=== PATIENT | female | born 1935 | race Caucasian/White ===

== ENCOUNTER 2017-01-27 12:56 | Emergency (ER) | payer MEDICARE, MEDICAID ==
[2017-01-27] MEDS ORDERED: MORPHINE SULFATE 10 MG/ML INJ IV ONE (12:59)
--- NOTE | 2017-01-27 12:59 | ER Document Report ---
ED General - General Stated Complaint: PAIN ON LEFT SIDE ,JOINTS Time Seen by Provider: 01/27/17 12:58 Mode of Arrival: Medic Information source: Patient Notes: 81-year-old female recent MS with stay in the hospital for 1 month presents with complaints of left-sided pain. Patient notes all her joints ache but her left-sided joints hurt more than her right side does. Patient notes weakness secondary to the pain denies any actual weakness. She denies any headache - HPI Onset: This morning Onset/Duration: Sudden Quality of pain: Achy Severity: Mild Pain Level: 1 Associated symptoms: Body/muscle aches, Weakness - Generalized weakness Exacerbated by: Movement Relieved by: Denies Similar symptoms previously: Yes Recently seen / treated by doctor: Yes - Related Data Allergies/Adverse Reactions: meperidine [From Demerol] Allergy (Verified 01/27/17 13:33) morphine Allergy (Verified 01/27/17 13:33) Past Medical History - Social History Smoking Status: Never Smoker Cigarette use (# per day): No Chew tobacco use (# tins/day): No Smoking Education Provided: No Family History: Reviewed & Not Pertinent Review of Systems - Review of Systems Notes: REVIEW OF SYSTEMS: CONSTITUTIONAL : Denies fever, chills, or sweats. Denies recent illness. EENT: Denies eye, ear, throat, or mouth pain or symptoms. Denies nasal or sinus congestion or discharge. Denies throat, tongue, or mouth swelling or difficulty swallowing. CARDIOVASCULAR: Denies chest pain. Denies palpitations or racing or irregular heart beat. Denies ankle edema. RESPIRATORY: Denies cough, cold, or chest congestion. Denies shortness of breath, difficulty breathing, or wheezing. GASTROINTESTINAL: Denies abdominal pain or distention. Denies nausea, vomiting , or diarrhea. Denies blood in vomitus, stools, or per rectum. Denies black, tarry stools. Denies constipation. GENITOURINARY: Denies difficulty urinating, painful urination, burning, frequency, blood in urine, or discharge. FEMALE GENITOURINARY: Denies vaginal bleeding, heavy or abnormal periods, irregular periods. Denies vaginal discharge or odor. MUSCULOSKELETAL: left sided joint pain SKIN: Denies rash, lesions or sores. HEMATOLOGIC : Denies easy bruising or bleeding. LYMPHATIC: Denies swollen, enlarged glands. NEUROLOGICAL: Denies confusion or altered mental status. Denies passing out or loss of consciousness. Denies dizziness or lightheadedness. Denies headache. Denies weakness or paralysis or loss of use of either side. Denies problems with gait or speech. Denies sensory loss, numbness, or tingling. Denies seizures. PSYCHIATRIC: Denies anxiety or stress. Denies depression, suicidal ideation, or homicidal ideation. ALL OTHER SYSTEMS REVIEWED AND NEGATIVE. PHYSICAL EXAMINATION: GENERAL: Well-appearing, well-nourished and in no acute distress. HEAD: Atraumatic, normocephalic. EYES: Pupils equal round and reactive to light, extraocular movements intact, conjunctiva are normal. ENT: Nares patent, oropharynx clear without exudates. Moist mucous membranes. NECK: Normal range of motion, supple without lymphadenopathy LUNGS: Breath sounds clear to auscultation bilaterally and equal. No wheezes rales or rhonchi. HEART: Regular rate and rhythm without murmurs ABDOMEN: Soft, nontender, nondistended abdomen. No guarding, no rebound. No masses appreciated. Female : deferred Musculoskeletal: Normal range of motion, no pitting or edema. No cyanosis. easily reproducible joint pain NEUROLOGICAL: Cranial nerves grossly intact. Normal speech, normal gait. Normal sensory, motor exams PSYCH: Normal mood, normal affect. SKIN: Warm, Dry, normal turgor, no rashes or lesions noted. Dictation was performed using [employer] voice recognition software Physical Exam - Vital signs Vitals: Resp BP Pulse Ox 16 134/52 H 98 01/27/17 13:12 01/27/17 13:12 01/27/17 13:12 Course - Re-evaluation Re-evalutation: 01/27/17 13:21 Patient has obvious tenderness on palpation, lab work is pending however I believe this is all joint related 01/27/17 15:01 Patient was given [place] states her symptoms have since resolved. Labwork does note mild renal insufficiency patient was given IV fluids and is otherwise stable for discharge patient wishes to go home at this time After performing a Medical Screening Examination, I estimate there is LOW risk for RUPTURED ESOPHAGUS, PNEUMOTHORAX, PULMONARY EMBOLISM, ACUTE CORONARY SYNDROME, OR THORACIC AORTIC DISSECTION, thus I consider the discharge disposition reasonable. I have reevaluated this patient multiple times and no significant life threatening changes are noted. The patient and I have discussed the diagnosis and risks, and we agree with discharging home with close follow-up. We also discussed returning to the Emergency Department immediately if new or worsening symptoms occur. We have discussed the symptoms which are most concerning (e.g., bloody sputum, worsening pain or shortness of breath) that necessitate immediate return. - Vital Signs Vital signs: Temp Pulse Resp BP Pulse Ox 97.8 F 16 134/52 H 97 01/27/17 13:13 01/27/17 13:13 01/27/17 13:12 01/27/17 13:13 - Laboratory Result Diagrams: 01/27/17 13:29 01/27/17 13:29 Laboratory results interpreted by me: 01/27/17 01/27/17 01/27/17 13:29 13:29 14:00 RBC 3.12 L Hgb 8.7 L Hct 26.1 L RDW 15.7 H Creatinine 1.60 H Est GFR ( Amer) 38 L Est GFR (Non-Af Amer) 31 L Glucose 183 H Alkaline Phosphatase 133 H Creatine Kinase < 20 L Total Protein 6.2 L Albumin 2.8 L Ur Leukocyte Esterase SMALL H - Diagnostic Test Radiology reviewed: Image reviewed, Reports reviewed Discharge - Discharge Clinical Impression: Renal insufficiency, Chronic anemia Joint pain Qualifiers: Joint pain location: unspecified Qualified Code(s): M25.50 - Pain in unspecified joint Condition: Stable Disposition: HOME, SELF-CARE Instructions: Anemia ([facility]) Referrals: COLIN GELLER MD [Primary Care Provider] - Follow up tomorrow
[2017-01-27] MEDS ORDERED: HYDROCODONE/ACETAMINOPHEN 5-325 MG TABLET PO ONE (13:34)
[2017-01-27 13:44] LABS: ABSOLUTE BASOPHILS # (AUTO) 0.1 10^3/uL (0.0-0.2); ABSOLUTE EOSINOPHILS # (AUTO) 0.1 10^3/uL (0.0-0.6); ABSOLUTE LYMPHOCYTES (AUTO) 1.9 10^3/uL (0.5-4.7); ABSOLUTE MONOCYTES (AUTO) 0.7 10^3/uL (0.1-1.4); ABSOLUTE NEUT (AUTO) 3.4 10^3/uL (1.7-8.2); BASOPHILS % (AUTO) 0.9 % (0-2); EOSINOPHILS % (AUTO) 2.2 % (0-6); HEMATOCRIT 26.1 % (36.0-47.0); HEMOGLOBIN 8.7 g/dL (12.0-15.5); LYMPHOCYTES % (AUTO) 30.5 % (13-45); MEAN CORPUSCULAR HEMOGLOBIN 27.9 pg (27.0-33.4); MEAN CORPUSCULAR HGB CONC 33.3 g/dL (32.0-36.0); MEAN CORPUSCULAR VOLUME 84 fl (80-97); MONOCYTES % (AUTO) 11.7 % (3-13); RED BLOOD COUNT 3.12 10^6/uL (3.72-5.28); RED CELL DISTRIBUTION WIDTH 15.7 % (11.5-14.0); SEGMENTED NEUTROPHILS % (AUTO) 54.7 % (42-78); WHITE BLOOD COUNT 6.3 10^3/uL (4.0-10.5)
[2017-01-27 14:04] LABS: ALANINE AMINOTRANSFERASE 18 U/L (9-52); ALBUMIN 2.8 g/dL (3.5-5.0); ALKALINE PHOSPHATASE 133 U/L (38-126); ANION GAP 10 (5-19); ASPARTATE AMINO TRANSFERASE 28 U/L (14-36); BILIRUBIN,DIRECT 0.4 mg/dL (0.0-0.4); BILIRUBIN,TOTAL 0.6 mg/dL (0.2-1.3); BLOOD UREA NITROGEN 20 mg/dL (7-20); CALCIUM 8.6 mg/dL (8.4-10.2); CARBON DIOXIDE 23 mmol/L (22-30); CHLORIDE 105 mmol/L (98-107); GLUCOSE 183 mg/dL (75-110); POTASSIUM 4.5 mmol/L (3.6-5.0); SODIUM 137.7 mmol/L (137-145); TOTAL PROTEIN 6.2 g/dL (6.3-8.2)
[2017-01-27 14:07] LABS: CREATINE KINASE < 20 U/L (30-135)
[2017-01-27 14:22] LABS: CREATINE KINASE MB < 0.22 ng/mL (<4.55); TROPONIN I < 0.012 ng/mL
[2017-01-27 14:25] LABS: APPEARANCE,URINE SLIGHTLY-CLOUDY; BILIRUBIN,URINE NEGATIVE (NEGATIVE); GLUCOSE, URINE NEGATIVE (NEGATIVE); KETONES,URINE NEGATIVE (NEGATIVE); LEUKOCYTE ESTERASE,URINE SMALL (NEGATIVE); NITRITE,URINE NEGATIVE (NEGATIVE); PROTEIN,URINE NEGATIVE (NEGATIVE); URINE SPECIFIC GRAVITY 1.013; UROBILINOGEN,URINE NEGATIVE mg/dL (<2.0)
[2017-01-27] MEDS ORDERED: NORMAL SALINE 1000 ML 1,000 ML IV ONE (14:37)
[2017-01-27 16:47] VITALS: BP 142/59
== END 2017-01-27 16:47 | disposition home or self-care (01) ==
LOC: ER 12:56
DX: N28.9 Disorder of kidney and ureter, unspecified (principal); D64.9 Anemia, unspecified; M25.50 Pain in unspecified joint
CPT/HCPCS: 99285; 96360; 36415; 82553; 82550; 85025; 80053; 81001; 84484; J7030; A9270

== ENCOUNTER 2017-01-31 09:05 | Emergency (ER) | payer MEDICARE, MEDICAID ==
[2017-01-25] MEDS: SOTALOL HCL 80 MG TABLET PO SCH
[2017-01-31] MEDS ORDERED: NORMAL SALINE 1000 ML 1,000 ML IV ONE (09:30)
[2017-01-31] MEDS ORDERED: ONDANSETRON HCL INJ/PF 4 MG/2 ML SDV IV ONE (09:30)
--- NOTE | 2017-01-31 09:30 | ER Document Report ---
ED Medical Screen (RME) - General Chief Complaint: Weakness Stated Complaint: WEAKNESS Time Seen by Provider: 01/31/17 09:19 Mode of Arrival: Wheelchair Information source: Patient, Relative Notes: 81-year-old female who [place] [facility] [place] supposed to receive home health care but has not had any admits to generalized joint pain. Patient was seen by myself a few days prior with similar complaints mild renal insufficiency chronic anemia was noted at that time. Patient notes she has been progressively getting weaker and has been nauseous and not eating at home I have greeted and performed a rapid initial assessment of this patient. A comprehensive ED assessment and evaluation of the patient, analysis of test results and completion of the medical decision making process will be conducted by additional ED providers. PHYSICAL EXAMINATION: GENERAL: Well-appearing, well-nourished and in no acute distress. vomiting HEAD: Atraumatic, normocephalic. EYES: Pupils equal round extraocular movements intact, conjunctiva are normal. ENT: Nares patent NECK: Normal range of motion LUNGS: No respiratory distress Musculoskeletal: Normal range of motion NEUROLOGICAL: Normal speech, normal gait. PSYCH: Normal mood, normal affect. SKIN: Warm, Dry, normal turgor, no rashes or lesions noted. TRAVEL OUTSIDE OF THE [place] IN LAST 30 DAYS: No - Related Data Allergies/Adverse Reactions: meperidine [From Demerol] Allergy (Verified 01/31/17 09:17) morphine Allergy (Verified 01/31/17 09:17) Past Medical History - Past Medical History Cardiac Medical History: Reports: Hx Atrial Fibrillation, Hx Congestive Heart Failure Endocrine Medical History: Reports: Hx Diabetes Mellitus Type 2 Renal/ Medical History: Denies: Hx Peritoneal Dialysis Musculoskeltal Medical History: Reports Hx Arthritis Past Surgical History: Reports: Hx Bowel Surgery, Hx Cholecystectomy, Hx Hysterectomy, Hx Orthopedic Surgery - knees bilat Physical Exam - Vital signs Vitals: Temp Pulse BP Pulse Ox 98.2 F 87 143/67 H 93 01/31/17 09:18 01/31/17 09:18 01/31/17 09:18 01/31/17 09:18 Course - Vital Signs Vital signs: Temp Pulse Resp BP Pulse Ox 98.2 F 87 143/67 H 93 01/31/17 09:18 01/31/17 09:18 01/31/17 09:18 01/31/17 09:18
[2017-01-31 10:04] LABS: ABSOLUTE BASOPHILS # (AUTO) 0.1 10^3/uL (0.0-0.2); ABSOLUTE EOSINOPHILS # (AUTO) 0.3 10^3/uL (0.0-0.6); ABSOLUTE LYMPHOCYTES (AUTO) 1.8 10^3/uL (0.5-4.7); ABSOLUTE MONOCYTES (AUTO) 0.7 10^3/uL (0.1-1.4); ABSOLUTE NEUT (AUTO) 4.3 10^3/uL (1.7-8.2); BASOPHILS % (AUTO) 0.8 % (0-2); EOSINOPHILS % (AUTO) 3.7 % (0-6); HEMATOCRIT 28.8 % (36.0-47.0); HEMOGLOBIN 9.3 g/dL (12.0-15.5); HGB HCT DIFFERENCE -0.9; LYMPHOCYTES % (AUTO) 25.1 % (13-45); MEAN CORPUSCULAR HEMOGLOBIN 27.2 pg (27.0-33.4); MEAN CORPUSCULAR HGB CONC 32.4 g/dL (32.0-36.0); MEAN CORPUSCULAR VOLUME 84 fl (80-97); MONOCYTES % (AUTO) 9.8 % (3-13); RED BLOOD COUNT 3.44 10^6/uL (3.72-5.28); RED CELL DISTRIBUTION WIDTH 16.2 % (11.5-14.0); SEGMENTED NEUTROPHILS % (AUTO) 60.6 % (42-78); WHITE BLOOD COUNT 7.2 10^3/uL (4.0-10.5)
[2017-01-31 10:25] LABS: ALANINE AMINOTRANSFERASE 20 U/L (9-52); ALBUMIN 3.1 g/dL (3.5-5.0); ALKALINE PHOSPHATASE 140 U/L (38-126); ANION GAP 12 (5-19); ASPARTATE AMINO TRANSFERASE 12 U/L (14-36); BILIRUBIN,DIRECT 0.4 mg/dL (0.0-0.4); BILIRUBIN,TOTAL 0.8 mg/dL (0.2-1.3); BLOOD UREA NITROGEN 10 mg/dL (7-20); CALCIUM 9.4 mg/dL (8.4-10.2); CARBON DIOXIDE 22 mmol/L (22-30); CHLORIDE 103 mmol/L (98-107); CREATININE RESULT 0.84 mg/dL (0.52-1.25); GLUCOSE 200 mg/dL (75-110); POTASSIUM 4.3 mmol/L (3.6-5.0); SODIUM 137.3 mmol/L (137-145); TOTAL PROTEIN 6.6 g/dL (6.3-8.2)
[2017-01-31] MEDS ORDERED: METOCLOPRAMIDE HCL INJ/PF 10 MG/2 ML SDV IV ONE (10:39)
[2017-01-31] MEDS ORDERED: NORMAL SALINE 1000 ML 1,000 ML IV PRN (10:39)
[2017-01-31] MEDS ORDERED: KETOROLAC TROMETHAMINE INJ/PF 30 MG/1 ML SDV IV ONE (10:39)
--- NOTE | 2017-01-31 10:43 | ER Document Report ---
ED Dizziness/Weakness - General Chief Complaint: Weakness Stated Complaint: WEAKNESS Time Seen by Provider: 01/31/17 09:19 Mode of Arrival: Wheelchair TRAVEL OUTSIDE OF THE [place] IN LAST 30 DAYS: No - HPI Patient complains to provider of: Weakness Onset: Last week Onset/Duration: Persistent, Worse Quality of pain: Achy Severity: Moderate Pain Level: 4 Associated symptoms: Nausea, Vomiting, Weak all over Baseline gait: Walks w/o assistance Notes: Patient is a 81-year-old female with a history of type 1 diabetes, atrial fibrillation and hypothyroidism, who recently suffered a mild [place] resulting in a near 4 weeks day at formerly [facility] in [place], she was discharged to her daughter's care approximately 12 days ago, since then daughter has noted that patient strength is gotten much worse, she is unable to perform her activities of daily living, unable to bear her own weight, requiring extensive assistance at home, she also complains of joint pain all over, was recently seen in this emergency room and prescribed hydrocodone which she states is not helping her pain at all, this morning she developed nausea and vomiting as well, has had decreased p.o. intake over the past few days, basically daughter is requesting that patient be admitted to the hospital and further transferred to a short- term or long-term care facility as she cannot be properly cared for at home at the present time - Related Data Allergies/Adverse Reactions: meperidine [From Demerol] Allergy (Verified 01/31/17 09:17) morphine Allergy (Verified 01/31/17 09:17) Home Medications: Current Home Medications Acetaminophen [Tylenol 325 mg Tablet] 325 mg PO BIDP PRN 01/31/17 [History] Apixaban [Eliquis 5 mg Tablet] 5 mg PO Q12 01/31/17 [History] Aspirin [Aspirin 81 mg Chewable Tablet] 162 mg PO DAILY 01/31/17 [History] Atorvastatin Calcium [Lipitor 40 mg Tablet] 40 mg PO QHS 01/31/17 [History] Cadexomer Iodine [Iodosorb Gel] 1 applic TP Q2DAYS 01/31/17 [History] Cetirizine HCl [Zyrtec 10 mg Tablet] 10 mg PO DAILY 01/31/17 [History] Diclofenac Sodium [Voltaren] 1 applic TP Q2DAYS 01/31/17 [History] Fluticasone Propionate [Flonase Nasal [place] 50 Mcg/[place] 16 gm] 1 spray NAREB DAILY 01/31/17 [History] Insulin Glargine,Hum.rec.anlog [Lantus Insulin Inj 300 Unit/3 ml Pen] 6 unit SUBCUT QAM 01/31/17 [History] Insulin Glargine,Hum.rec.anlog [Lantus Insulin Inj 300 Unit/3 ml Pen] 10 unit SUBCUT QHS 01/31/17 [History] Insulin Lispro [Humalog Insulin 100 Unit/1 ml 3 ml Vial] 0 unit SUBCUT .SLD SCALE 01/31/17 [History] Levothyroxine Sodium [Synthroid] 150 mcg PO DAILY 01/31/17 [History] Losartan Potassium [Cozaar 50 mg Tablet] 50 mg PO Q12 01/31/17 [History] Nitroglycerin [Nitrostat] 0.4 mg SL Q5MP PRN 01/31/17 [History] Pantoprazole Sodium [Protonix] 40 mg PO DAILY 01/31/17 [History] Potassium Chloride [Klor-Con 10 Meq Tablet.sa] 20 meq PO DAILY 01/31/17 [History ] Sennosides [Senna] 1 tab PO DAILYP PRN 01/31/17 [History] Sotalol HCl [Sotalol] 80 mg PO Q12 01/31/17 [History] Past Medical History - General Information source: Patient, Relative - Social History Smoking Status: Never Smoker Chew tobacco use (# tins/day): No Frequency of alcohol use: None Drug Abuse: None Family History: Reviewed & Not Pertinent Patient has suicidal ideation: No Patient has homicidal ideation: No - Past Medical History Cardiac Medical History: Reports: Hx Atrial Fibrillation, Hx Congestive Heart Failure Endocrine Medical History: Reports: Hx Diabetes Mellitus Type 2 Renal/ Medical History: Denies: Hx Peritoneal Dialysis Musculoskeltal Medical History: Reports Hx Arthritis Past Surgical History: Reports: Hx Bowel Surgery, Hx Cholecystectomy, Hx Hysterectomy, Hx Orthopedic Surgery - knees bilat Review of Systems - Review of Systems Constitutional: See HPI EENT: No symptoms reported Cardiovascular: No symptoms reported Respiratory: No symptoms reported Gastrointestinal: See HPI Genitourinary: No symptoms reported Female Genitourinary: No symptoms reported Musculoskeletal: See HPI Skin: No symptoms reported Hematologic/Lymphatic: No symptoms reported Neurological/Psychological: No symptoms reported -: Yes All other systems reviewed and negative Physical Exam - Vital signs Vitals: Temp Pulse BP Pulse Ox 98.2 F 87 143/67 H 93 01/31/17 09:18 01/31/17 09:18 01/31/17 09:18 01/31/17 09:18 Interpretation: Normal - General General appearance: Appears well, Alert - HEENT Head: Normocephalic, Atraumatic Eyes: Normal Pupils: PERRL - Respiratory Respiratory status: No respiratory distress Chest status: Nontender Breath sounds: Normal Chest palpation: Normal - Cardiovascular Rhythm: Regular Heart sounds: Normal auscultation Murmur: No - Abdominal Inspection: Normal Distension: No distension Bowel sounds: Normal Tenderness: Nontender Organomegaly: No organomegaly - Back Back: Normal, Nontender - Extremities General upper extremity: Normal color, Normal temperature General lower extremity: Normal color, Normal temperature. No: Marisol's sign Shoulder: Other - Reports pain with range of motion testing and palpation of the left shoulder, distal sensation and motor is intact with good real estate salesperson strength bilaterally, 2+ radial pulses and brisk capillary refill bilaterally Knee: Other - Swelling to bilateral knees, patient reports pain with palpation and range of motion testing, distal sensation and motor is intact with 2+ DP pulses bilaterally - Neurological Neuro grossly intact: Yes Cognition: Normal Orientation: AAOx4 [place] Coma Scale Eye Opening: Spontaneous [place] Coma Scale Verbal: Oriented Nelsy Coma Scale Motor: Obeys Commands [place] Coma Scale Total: 15 Speech: Normal Motor strength normal: LUE, RUE, LLE, RLE Sensory: Normal - Psychological Associated symptoms: Normal affect, Normal mood - Skin Skin Temperature: Warm Skin Moisture: Dry Skin Color: Normal Course - Re-evaluation Re-evalutation: 01/31/17 12:[address] García's office, requested callback regarding possibly admitting patient 01/31/17 13:26 Patient was discussed with Dr. García, who reports patient does not meet inpatient hospitalization criteria, recommend she be discharged home and follow- up with social work to obtain placement otherwise as he will not admit patient to this facility at this time 01/31/17 19:41 Patient was discussed with Brijesh with [facility] who is attempting to find placement for the patient, he does not meet inpatient criteria at this time and daughter refuses to take patient home at this time because she can not care for her appropriately at home, therefore patient will remain in the emergency room as a social hold until appropriate placement can be made - Vital Signs Vital signs: Temp Pulse Resp BP Pulse Ox 98.2 F 87 14 128/38 H 92 01/31/17 09:18 01/31/17 18:00 01/31/17 18:00 01/31/17 18:00 01/31/17 18:00 - Laboratory Result Diagrams: 01/31/17 09:45 01/31/17 09:45 Laboratory results interpreted by me: 01/31/17 01/31/17 01/31/17 09:45 09:45 09:45 RBC 3.44 L Hgb 9.3 L Hct 28.8 L RDW 16.2 H Plt Count 462 H Glucose 200 H POC Glucose AST 12 L Alkaline Phosphatase 140 H Albumin 3.1 L Free T4 2.59 H Urine Glucose (UA) Urine Ketones Urine Blood 01/31/17 01/31/17 01/31/17 11:15 14:52 17:50 RBC Hgb Hct RDW Plt Count Glucose POC Glucose 256 H 185 H AST Alkaline Phosphatase Albumin Free T4 Urine Glucose (UA) 50 H Urine Ketones TRACE H Urine Blood SMALL H Discharge - Discharge Clinical Impression: Weakness Condition: Stable Disposition: REHAB FACILITY
[2017-01-31 11:36] LABS: APPEARANCE,URINE CLEAR; BILIRUBIN,URINE NEGATIVE (NEGATIVE); GLUCOSE, URINE 50 mg/dL (NEGATIVE); KETONES,URINE TRACE mg/dL (NEGATIVE); LEUKOCYTE ESTERASE,URINE NEGATIVE (NEGATIVE); NITRITE,URINE NEGATIVE (NEGATIVE); PROTEIN,URINE NEGATIVE (NEGATIVE); URINE SPECIFIC GRAVITY 1.004; UROBILINOGEN,URINE NEGATIVE mg/dL (<2.0)
[2017-01-31 11:51] LABS: FREE T3 3.03 pg/mL (2.77-5.27)
[2017-01-31 12:04] LABS: THYROID STIMULATING HORMONE 1.93 uIU/mL (0.47-4.68)
--- NOTE | 2017-01-31 14:12 | EKG REPORT ---
SEVERITY:- NORMAL ECG - SINUS RHYTHM : Confirmed by: Rigoberto Thomas MD 31-Jan-2017 14:11:52
[2017-01-31] MEDS ORDERED: INSULIN REG, HUMAN 100 UNIT/ML 3 ML VIAL (PYX) SUBCUT ONE (14:54)
[2017-01-31] MEDS ORDERED: DEXTROSE 40% GEL 15 GM TUBE X 2 PO PRN (17:48)
[2017-01-31] MEDS ORDERED: DEXTROSE 40% GEL 15 GM TUBE PO PRN (17:48)
[2017-01-31] MEDS ORDERED: DEXTROSE 50%-WATER SYRINGE 12.5 GM/25 ML DOSE IV PRN (17:48)
[2017-01-31] MEDS ORDERED: GLUCAGON,HUMAN RECOMB 1 MG INJ IM PRN (17:48)
[2017-01-31] MEDS ORDERED: DEXTROSE 50%-WATER SYRINGE 25 GM/50 ML DOSE IV PRN (17:48)
[2017-01-31] MEDS ORDERED: INSULIN LISPRO 100 UNIT/ML 3 ML VIAL SUBCUT PRN (19:51)
[2017-01-31] MEDS ORDERED: ACETAMINOPHEN 325 MG TABLET PO PRN (19:51)
[2017-01-31] MEDS ORDERED: NITROGLYCERIN 0.4 MG/TAB 25 TAB/BOTTLE SL PRN (19:51)
[2017-01-31] MEDS ORDERED: SENNOSIDES PO PRN (19:51)
[2017-01-31] MEDS ORDERED: SENNOSIDES/DOCUSATE 8.6-50 MG 1 EACH TABLET PO PRN (20:02)
[2017-02-01] MEDS: INSULIN GLARGINE,HUM.REC.ANLOG 300 UNIT/3 ML INSULN.PEN SUBCUT SCH ×3 (08:10→21:48)
[2017-02-01] MEDS: POTASSIUM CHLORIDE 10 MEQ TABLET.SA PO SCH (10:43)
[2017-02-01] MEDS: SOTALOL HCL 80 MG TABLET PO SCH ×2 (10:44→21:49)
[2017-02-01] MEDS: ASPIRIN 81 MG TABLET, CHEWABLE PO SCH (10:45)
[2017-02-01] MEDS ORDERED: ONDANSETRON 4 MG TAB.RAPDIS SL ONE (10:45)
[2017-02-01] MEDS: LOSARTAN POTASSIUM 50 MG TABLET PO SCH ×3 (10:46→21:49)
[2017-02-01] MEDS: LANSOPRAZOLE 30 MG TAB.RAP.DR PO SCH (10:46)
--- NOTE | 2017-02-01 11:10 | ER Document Report ---
Doctor's Note Notes: 02/01/17 11:09 Patient resting comfortably on stretcher, reports feeling nauseated at this time , otherwise stable overnight, patient remains in the emergency room pending placement in a short-term/long-term care facility as her daughter is no longer able to care for her at home
[2017-02-01] MEDS: INSULIN REG, HUMAN 100 UNIT/ML 3 ML VIAL (PYX) SUBCUT PRN ×3 (11:32→21:47)
[2017-02-01] MEDS: APIXABAN 5 MG TABLET PO SCH ×3 (11:33→21:50)
[2017-02-01] MEDS: CETIRIZINE 10 MG TABLET PO SCH (11:35)
[2017-02-01] MEDS: LEVOTHYROXINE SODIUM 0.15 MG TABLET PO SCH (11:35)
[2017-02-01] MEDS: FLUTICASONE NASAL SPRAY 50 MCG/SPRY 120 SPRAY/16 GM NASL SCH (11:37)
[2017-02-01] MEDS ORDERED: HYDROCODONE/ACETAMINOPHEN 5-325 MG TABLET PO ONE (19:52)
[2017-02-01] MEDS: ATORVASTATIN CALCIUM 40 MG TABLET PO SCH ×2 (21:51)
[2017-02-02] MEDS: INSULIN GLARGINE,HUM.REC.ANLOG 300 UNIT/3 ML INSULN.PEN SUBCUT SCH ×2 (08:06→22:58)
[2017-02-02] MEDS: CETIRIZINE 10 MG TABLET PO SCH (09:48)
[2017-02-02] MEDS: APIXABAN 5 MG TABLET PO SCH ×2 (09:48→23:07)
[2017-02-02] MEDS: POTASSIUM CHLORIDE 10 MEQ TABLET.SA PO SCH (09:49)
[2017-02-02] MEDS: LANSOPRAZOLE 30 MG TAB.RAP.DR PO SCH (09:50)
[2017-02-02] MEDS: ASPIRIN 81 MG TABLET, CHEWABLE PO SCH (09:50)
[2017-02-02] MEDS: LOSARTAN POTASSIUM 50 MG TABLET PO SCH ×2 (09:50→23:08)
[2017-02-02] MEDS: SOTALOL HCL 80 MG TABLET PO SCH ×2 (09:50→23:04)
[2017-02-02] MEDS: FLUTICASONE NASAL SPRAY 50 MCG/SPRY 120 SPRAY/16 GM NASL SCH (09:51)
[2017-02-02] MEDS ORDERED: (PENDING PHARMACY ID) (Diclofenac Sodium [Voltaren] 1 APPLIC) TP SCH (10:00)
[2017-02-02] MEDS ORDERED: CADEXOMER IODINE GEL 40 GM/TUBE TP SCH (10:00)
[2017-02-02] MEDS: LEVOTHYROXINE SODIUM 0.15 MG TABLET PO SCH (10:33)
[2017-02-02] MEDS: INSULIN REG, HUMAN 100 UNIT/ML 3 ML VIAL (PYX) SUBCUT PRN ×2 (11:51→16:13)
--- NOTE | 2017-02-02 16:07 | ER Document Report ---
Doctor's Note Notes: 02/02/17 16:06 Rounds: Patient was interviewed earlier today. Chart reviewed. All lab studies essentially normal. Vital signs essentially normal. Patient appears to be medically stable for transfer or discharge. The problem apparently is a placement issue that is apparently difficult to resolve. Girish Melo MD
[2017-02-02] MEDS: HYDROCODONE/ACETAMINOPHEN 5-325 MG TABLET PO PRN (23:00)
[2017-02-02] MEDS: ATORVASTATIN CALCIUM 40 MG TABLET PO SCH (23:04)
[2017-02-03] MEDS: ASPIRIN 81 MG TABLET, CHEWABLE PO SCH (08:33)
[2017-02-03] MEDS: LANSOPRAZOLE 30 MG TAB.RAP.DR PO SCH (08:34)
[2017-02-03] MEDS: LEVOTHYROXINE SODIUM 0.15 MG TABLET PO SCH (08:34)
[2017-02-03] MEDS: CETIRIZINE 10 MG TABLET PO SCH (08:34)
[2017-02-03] MEDS: POTASSIUM CHLORIDE 10 MEQ TABLET.SA PO SCH (08:35)
[2017-02-03] MEDS: APIXABAN 5 MG TABLET PO SCH (08:36)
[2017-02-03] MEDS: LOSARTAN POTASSIUM 50 MG TABLET PO SCH (08:36)
[2017-02-03] MEDS: INSULIN GLARGINE,HUM.REC.ANLOG 300 UNIT/3 ML INSULN.PEN SUBCUT SCH (09:00)
--- NOTE | 2017-02-03 12:33 | ER Document Report ---
Doctor's Note Notes: 02/03/17 12:31 Rounds made on patient: Chart reviewed, labs reviewed. Patient visited. She was trying to get to her lunch but unable because she was laying flat and had dropped her packet of plastic wear on the floor. I pulled her up in the bed a little bit, lifted her head of bed up so she could eat. Movement of the food table in front of her where she could access it. She is quite appreciative of the assistance. She states she does not have much of an appetite but did want to eat her peaches right now. Her pre-meal Accu-Chek was elevated at 279, her prebreakfast Accu- Chek was 79. She continues to wait on long-term care placement. 02/03/17 15:21 The family has secured some in-home health care and is requesting the patient be discharged home. 02/03/17 18:36 I have been reviewing the chart today and seen the patient sugars are climbing. I was unable to find that she had been receiving her sliding scale insulin as it was ordered, so discussed this with her nurse. She will give the insulin now.
--- NOTE | 2017-02-03 15:16 | RADIOLOGY REPORT (SQ) ---
EXAM DESCRIPTION: CHEST SINGLE VIEW COMPLETED DATE/TIME: 02/01/2017, 2206 hours REASON FOR STUDY: Cough, shortness of breath COMPARISON: None TECHNIQUE: AP portable chest film, 02/01/2017, 2206 hours LIMITATIONS: None FINDINGS: No focal pulmonary infiltrates. Upper lobes are hyperlucent suggesting obstructive diseas e. No pleural effusions. No pneumothorax. Cardiac silhouette size, junior unremarkable. Bony structures unremarkable. IMPRESSION: No acute findings. Obstructive lung disease.
[2017-02-03] MEDS: HYDROCODONE/ACETAMINOPHEN 5-325 MG TABLET PO PRN (16:07)
[2017-02-03] MEDS: INSULIN REG, HUMAN 100 UNIT/ML 3 ML VIAL (PYX) SUBCUT PRN (18:50)
[2017-02-03 19:05] VITALS: BP 130/64
== END 2017-02-03 19:06 ==
LOC: ER 09:05
DX: R53.1 Weakness (principal); I50.9 Heart failure, unspecified; I11.0 Hypertensive heart disease with heart failure; E11.9 Type 2 diabetes mellitus without complications; Z90.49 Acquired absence of other specified parts of digestive tract; Z90.710 Acquired absence of both cervix and uterus
CPT/HCPCS: 93005; 99285; 96361; 96374; 96375; 36415; 87086; 84439; 82962; 84443; 85025; 80053; 81001; 84481; 71010; 93010; A9270 ×35; J1885; J2765; J2405; J7030; J1815; J3490; S0119

== ENCOUNTER 2017-03-31 18:19 | Emergency (ER) | payer MEDICARE ==
[2017-03-31] MEDS ORDERED: NORMAL SALINE 1000 ML 1,000 ML IV ONE (18:56)
[2017-03-31 19:03] LABS: ABSOLUTE EOSINOPHILS # (AUTO) 0.1 10^3/uL (0.0-0.6); ABSOLUTE LYMPHOCYTES (AUTO) 2.6 10^3/uL (0.5-4.7); ABSOLUTE MONOCYTES (AUTO) 0.6 10^3/uL (0.1-1.4); BASOPHILS % (AUTO) 0.5 % (0-2); EOSINOPHILS % (AUTO) 1.5 % (0-6); HEMATOCRIT 25.8 % (36.0-47.0); HEMOGLOBIN 8.5 g/dL (12.0-15.5); HGB HCT DIFFERENCE -0.3; LYMPHOCYTES % (AUTO) 31.2 % (13-45); MEAN CORPUSCULAR HEMOGLOBIN 27.1 pg (27.0-33.4); MEAN CORPUSCULAR HGB CONC 33.1 g/dL (32.0-36.0); MEAN CORPUSCULAR VOLUME 82 fl (80-97); MONOCYTES % (AUTO) 7.3 % (3-13); RED BLOOD COUNT 3.15 10^6/uL (3.72-5.28); RED CELL DISTRIBUTION WIDTH 18.6 % (11.5-14.0); SEGMENTED NEUTROPHILS % (AUTO) 59.5 % (42-78); WHITE BLOOD COUNT 8.4 10^3/uL (4.0-10.5)
[2017-03-31] MEDS ORDERED: SOTALOL HCL 80 MG TABLET PO ONE (19:26)
[2017-03-31 19:29] LABS: ALANINE AMINOTRANSFERASE 23 U/L (9-52); ALKALINE PHOSPHATASE 93 U/L (38-126); ANION GAP 12 (5-19); ASPARTATE AMINO TRANSFERASE 13 U/L (14-36); BILIRUBIN,DIRECT 0.4 mg/dL (0.0-0.4); BILIRUBIN,TOTAL 0.5 mg/dL (0.2-1.3); BLOOD UREA NITROGEN 13 mg/dL (7-20); CALCIUM 9.6 mg/dL (8.4-10.2); CARBON DIOXIDE 26 mmol/L (22-30); CHLORIDE 101 mmol/L (98-107); CREATININE RESULT 0.75 mg/dL (0.52-1.25); GLUCOSE 98 mg/dL (75-110); LIPASE 15.3 U/L (23-300); POTASSIUM 4.1 mmol/L (3.6-5.0); SODIUM 138.9 mmol/L (137-145); TOTAL PROTEIN 6.3 g/dL (6.3-8.2)
--- NOTE | 2017-03-31 19:29 | RADIOLOGY REPORT (SQ) ---
EXAM DESCRIPTION: KUB/ABDOMEN (SINGLE VIEW) COMPLETED DATE/TIME: 03/31/2017 7:13 pm REASON FOR STUDY: eval persistent vomiting, sbo COMPARISON: None. NUMBER OF VIEWS: One view. TECHNIQUE: Supine radiographic image of the abdomen acquired. LIMITATIONS: None. FINDINGS: BOWEL GAS PATTERN: Normal bowel gas pattern. No dilated loops. CALCIFICATIONS: No suspicious calcifications. SOFT TISSUES: No gross mass or suggestion of organomegaly. HARDWARE: None in the abdomen. BONES: No acute fracture. No worrisome bone lesions. OTHER: No other significant finding. IMPRESSION: NO RADIOGRAPHIC EVIDENCE FOR ACUTE ABDOMINAL DISEASE. TECHNICAL DOCUMENTATION: JOB ID: [id number] [employer] [employer]- All Rights Reserved
--- NOTE | 2017-03-31 19:33 | ER Document Report ---
ED General - General Chief Complaint: Nausea/Vomiting Stated Complaint: VOMITING Time Seen by Provider: 03/31/17 18:52 Notes: Patient is a 81-year-old female with a past medical history of atrial fibrillation, hypertension, diabetes with insulin-dependence, who presents with concerns of nausea, vomiting, and anorexia for the past 3 days. Patient states that she has been trying Phenergan at home without improvement of her symptoms. Nothing worsens her symptoms other than attempts at eating or drinking. She states that her inability to eat or drink has made her dehydrated. She also notes that she has been unable to take her medications. She does also complain of palpitations but denies any chest pain, shortness of breath, focal weakness or numbness. She has a history of similar symptoms in the past. She does have a surgical history of a partial colectomy and cholecystectomy. TRAVEL OUTSIDE OF THE [place] IN LAST 30 DAYS: No - Related Data Allergies/Adverse Reactions: meperidine [From Demerol] Allergy (Verified 01/31/17 09:17) morphine Allergy (Verified 01/31/17 09:17) Home Medications: Current Home Medications Duloxetine HCl [Cymbalta] 60 mg PO BID 03/31/17 [History] Past Medical History - General Information source: Patient, Relative - Social History Smoking Status: Never Smoker Chew tobacco use (# tins/day): No Frequency of alcohol use: None Drug Abuse: None Lives with: Family Family History: Reviewed & Not Pertinent Patient has suicidal ideation: No Patient has homicidal ideation: No - Past Medical History Cardiac Medical History: Reports: Hx Atrial Fibrillation - eloquis, Hx Congestive Heart Failure, Hx Hypercholesterolemia Endocrine Medical History: Reports: Hx Diabetes Mellitus Type 2 - metformin Renal/ Medical History: Denies: Hx Peritoneal Dialysis Musculoskeltal Medical History: Reports Hx Arthritis Past Surgical History: Reports: Hx Bowel Surgery, Hx Cholecystectomy, Hx Hysterectomy, Hx Orthopedic Surgery - knees bilat - Immunizations Hx Diphtheria, Pertussis, Tetanus Vaccination: Yes Review of Systems - Review of Systems Notes: Constitutional: Negative for fever. HENT: Negative for sore throat. Eyes: Negative for visual changes. Cardiovascular: Negative for chest pain. Respiratory: Negative for shortness of breath. Gastrointestinal: Negative for abdominal pain, positive for vomiting Genitourinary: Negative for dysuria. Musculoskeletal: Negative for back pain. Skin: Negative for rash. Neurological: Negative for headaches, weakness or numbness. 10 point ROS negative except as marked above and in HPI. Physical Exam - Vital signs Vitals: Resp BP Pulse Ox 19 133/87 H 98 03/31/17 18:33 03/31/17 18:33 03/31/17 18:33 Interpretation: Normal Notes: PHYSICAL EXAMINATION: GENERAL: Well-appearing, well-nourished and in no acute distress. HEAD: Atraumatic, normocephalic. EYES: Pupils equal round and reactive to light, extraocular movements intact, sclera anicteric, conjunctiva are normal. ENT: nares patent, oropharynx clear without exudates. Moderately dry mucous membranes. NECK: Normal range of motion, supple without lymphadenopathy LUNGS: Breath sounds clear to auscultation bilaterally and equal. No wheezes rales or rhonchi. HEART: Irregularly irregular tachycardia without murmurs ABDOMEN: Soft, nontender, normoactive bowel sounds. No guarding, no rebound. No masses appreciated. EXTREMITIES: Normal range of motion, no pitting or edema. No cyanosis. NEUROLOGICAL: No focal neurological deficits. Moves all extremities spontaneously and on command. PSYCH: Normal mood, normal affect. SKIN: Warm, Dry, normal turgor, no rashes or lesions noted. Course - Re-evaluation Re-evalutation: 03/31/17 19:32 Patient presents with persistent nausea and vomiting for the past 2 days with associated A. fib with rapid ventricular response at time of arrival. Patient has been unable to keep down any of her medications in the last 48 hours including her sotalol which may be part of her difficulty with A. fib at this time. She denies any focal abdominal or chest pain. Abdominal exam does show some generalized upper abdominal tenderness in the epigastrium and right upper quadrant without any rebound or guarding. KUB without any evidence of an acute obstruction and a clinical history likewise is not consistent with this diagnosis that she has not had any bilious vomiting and continues to pass flatus and have bowel movements. IV fluids have been administered. I will give her her home dose of sotalol 80 mg. Will also obtain a right upper quadrant ultrasound to ensure that this is not acute biliary pathology. Will then reassess. 03/31/17 22:16 Right upper quadrant ultrasound is normal. Heart rate has completely normalized after administration of patient's home sotalol dose. Patient is tolerating oral intake here without difficulty. Her daughter is now at the bedside and gives a clear history stating that larger issues the patient has continued to have anorexia and poor p.o. intake as opposed to overt vomiting. Patient has not had any vomiting over the last 48 hours only nausea and refusal to eat. She states this is been an ongoing issue for at least 6 months and is nothing new or different today. She does confirm the patient was not able to take her medications due to nausea over the last 2 days. We have reviewed the need for close outpatient follow-up with her primary doctor and consideration of palliative care for assistance with anorexia and refusal to eat. At this time will discharge with return precautions and follow-up recommendations. Verbal discharge instructions given a the bedside and opportunity for questions given. Medication warnings reviewed. Patient is in agreement with this plan and has verbalized understanding of return precautions and the need for primary care follow-up in the next 24-72 hours. - Vital Signs Vital signs: Temp Pulse Resp BP Pulse Ox 97.9 F 15 129/49 H 94 03/31/17 18:48 03/31/17 22:32 03/31/17 22:33 03/31/17 22:33 - Laboratory Result Diagrams: 03/31/17 18:30 03/31/17 18:30 Laboratory results interpreted by me: 03/31/17 03/31/17 03/31/17 18:30 18:30 20:37 RBC 3.15 L Hgb 8.5 L Hct 25.8 L RDW 18.6 H Plt Count 543 H AST 13 L Albumin 3.0 L Lipase 15.3 L Ur Leukocyte Esterase SMALL H - Diagnostic Test Radiology reviewed: Reports reviewed - EKG Interpretation by Me Additional EKG results interpreted by me: 03/31/17 22:17 Atrial flutter. Rate 127. No ST elevations or depressions. QTC is 466. Discharge - Discharge Clinical Impression: Atrial fibrillation and flutter, Nausea, Anorexia Iron deficiency anemia Qualifiers: Iron deficiency anemia type: other iron deficiency Qualified Code(s): D50.8 - Other iron deficiency anemias Condition: Good Disposition: HOME, SELF-CARE Additional Instructions: Your labs here today show that your blood count is low but otherwise reassuring. The x-ray and ultrasound are also normal. Please follow-up closely with your primary care doctor regarding the issues that we discussed again regarding your eating. Return for any additional concerns you may have including persistent vomiting, fever, passing out, or any other symptoms that are worrisome to you.
[2017-03-31 21:34] LABS: APPEARANCE,URINE CLEAR; BILIRUBIN,URINE NEGATIVE (NEGATIVE); GLUCOSE, URINE NEGATIVE (NEGATIVE); KETONES,URINE NEGATIVE (NEGATIVE); LEUKOCYTE ESTERASE,URINE SMALL (NEGATIVE); NITRITE,URINE NEGATIVE (NEGATIVE); PROTEIN,URINE NEGATIVE (NEGATIVE); URINE SPECIFIC GRAVITY 1.005; UROBILINOGEN,URINE NEGATIVE mg/dL (<2.0)
--- NOTE | 2017-03-31 21:36 | RADIOLOGY REPORT (SQ) ---
EXAM DESCRIPTION: U/S ABDOMEN LIMITED W/O DOP COMPLETED DATE/TIME: 03/31/2017 9:10 pm REASON FOR STUDY: vomiting, upper abdominal pain COMPARISON: None. TECHNIQUE: Dynamic and static grayscale images acquired of the right upper quadrant and recorded on PACS. Additional selected color Doppler and spectral images recorded. LIMITATIONS: Study limited due to acoustical interference from fat or from air in the bowel. FINDINGS: PANCREAS: Parts or all of the pancreas poorly seen secondary to acoustical interference fr om fat or from air in the bowel. LIVER: Echotexture is coarse with increased echogenicity consistent with fatty infiltration. No mass es. LIVER VASCULATURE: Normal directional flow of the main portal vein and hepatic veins. GALLBLADDER: Surgically absent. ULTRASOUND-DETECTED DONATO'S SIGN: Negative. INTRAHEPATIC DUCTS AND COMMON DUCT: CBD and intrahepatic ducts normal caliber. No filling defects. INFERIOR VENA CAVA: Normal flow. AORTA: No aneurysm. RIGHT KIDNEY: Normal size. Normal echogenicity. No solid or suspicious masses. No hydronephrosis. No calcifications. PERITONEAL CAVITY AND RIGHT PLEURAL SPACE: No ascites or effusions. OTHER: No other significant finding. IMPRESSION: STATUS POST CHOLECYSTECTOMY. FATTY LIVER. PANCREAS PARTIALLY OR COMPLETELY OBSCURED. OT HERWISE NORMAL RIGHT UPPER QUADRANT ULTRASOUND. TECHNICAL DOCUMENTATION: JOB ID: [id number] [employer]- All Rights Reserved
[2017-03-31 22:45] VITALS: BP 129/49
--- NOTE | 2017-04-01 07:52 | EKG REPORT ---
SEVERITY:- ABNORMAL ECG - ATRIAL FIB- FLUTTER WITH RVR 127/MIN ST DEPRESSION, CONSIDER ISCHEMIA, INF LEADS : Confirmed by: Rigoberto Thomas MD 01-Apr-2017 07:51:52
== END 2017-03-31 22:48 | disposition home or self-care (01) ==
LOC: ER 18:19
DX: I48.91 Unspecified atrial fibrillation (principal); I48.92 Unspecified atrial flutter; D50.8 Other iron deficiency anemias; R11.2 Nausea with vomiting, unspecified; R63.0 Anorexia; I10 Essential (primary) hypertension; E11.9 Type 2 diabetes mellitus without complications; Z79.4 Long term (current) use of insulin; Z90.49 Acquired absence of other specified parts of digestive tract; Z88.6 Allergy status to analgesic agent; Z79.02 Long term (current) use of antithrombotics/antiplatelets; Z79.84 Long term (current) use of oral hypoglycemic drugs
CPT/HCPCS: 99285; 96360; 96361; 36415; 83690; 85025; 80053; 81001; 84484; 74000; 76705; 93005; 93010; A9270; J7030; J3490

== ENCOUNTER 2017-05-15 13:48 | Emergency (ER) | payer MEDICARE, MEDICAID ==
[2017-05-15 14:47] LABS: ABSOLUTE BASOPHILS # (AUTO) 0.1 10^3/uL (0.0-0.2); ABSOLUTE EOSINOPHILS # (AUTO) 0.1 10^3/uL (0.0-0.6); ABSOLUTE LYMPHOCYTES (AUTO) 2.5 10^3/uL (0.5-4.7); ABSOLUTE MONOCYTES (AUTO) 0.7 10^3/uL (0.1-1.4); ABSOLUTE NEUT (AUTO) 4.9 10^3/uL (1.7-8.2); BASOPHILS % (AUTO) 0.9 % (0-2); EOSINOPHILS % (AUTO) 1.2 % (0-6); HEMATOCRIT 32.9 % (36.0-47.0); HEMOGLOBIN 10.7 g/dL (12.0-15.5); HGB HCT DIFFERENCE -0.8; LYMPHOCYTES % (AUTO) 30.3 % (13-45); MEAN CORPUSCULAR HEMOGLOBIN 27.3 pg (27.0-33.4); MEAN CORPUSCULAR HGB CONC 32.5 g/dL (32.0-36.0); MEAN CORPUSCULAR VOLUME 84 fl (80-97); MONOCYTES % (AUTO) 8.4 % (3-13); RED BLOOD COUNT 3.91 10^6/uL (3.72-5.28); SEGMENTED NEUTROPHILS % (AUTO) 59.2 % (42-78); WHITE BLOOD COUNT 8.3 10^3/uL (4.0-10.5)
--- NOTE | 2017-05-15 14:51 | ER Document Report ---
ED General - General Mode of Arrival: Ambulatory Information source: Patient, Relative TRAVEL OUTSIDE OF THE [place] IN LAST 30 DAYS: No - HPI Onset: Other <SWEETIE LARA - Last Filed: 05/15/17 15:52> <YECENIA SABA - Last Filed: 05/15/17 18:13> - General Chief Complaint: Low Blood Pressure Stated Complaint: CHEST PAINS Time Seen by Provider: 05/15/17 14:32 Notes: Patient is a 81 year old female that presents to the emergency department today with complaints of chest pain today with associated syncope and weakness. Patient states that the pain is much less severe and intermittent now compared to when it started. Family reports four syncopal episodes today, 2 prior to arrival and 2 when arriving here. Family states she "is out" for 3-4 seconds. Family states the patient was admitted for one week at [facility], being discharged about 3 weeks ago for generalized weakness with vomiting and weight loss. Patient was found to be anemic without a bleeding source that could be located. Family states multiple studies were done including a colonoscopy and endoscopy which were all unremarkable. Family at bedside states that the patient has been losing weight pretty rapidly although eating at baseline. Family states patient is now generally weak again, about the same amount of weakness is when she is [facility]. (SWEETIE LARA) This lightheaded and near syncope she is having today occurs while sitting in a wheelchair. Her blood pressure is quite low compared to her baseline. (YECENIA SABA) - Related Data Allergies/Adverse Reactions: meperidine [From Demerol] Allergy (Verified 01/31/17 09:17) metformin Allergy (Verified 05/15/17 13:54) morphine Allergy (Verified 01/31/17 09:17) Past Medical History - General Information source: Patient, Parent, [facility] Records - Social History Smoking Status: Former Smoker Cigarette use (# per day): No Frequency of alcohol use: None Drug Abuse: None Lives with: Family Family History: Reviewed & Not Pertinent - Past Medical History Cardiac Medical History: Reports: Hx Atrial Fibrillation - eloquis was recently stopped secondary to anemia, Hx Congestive Heart Failure, Hx Hypercholesterolemia Endocrine Medical History: Reports: Hx Diabetes Mellitus Type 2 - metformin Renal/ Medical History: Denies: Hx Peritoneal Dialysis Musculoskeltal Medical History: Reports Hx Arthritis Past Surgical History: Reports: Hx Bowel Surgery, Hx Cholecystectomy, Hx Hysterectomy, Hx Orthopedic Surgery - knees bilat - Immunizations Hx Diphtheria, Pertussis, Tetanus Vaccination: Yes <SWEETIE LARA - Last Filed: 05/15/17 15:52> Review of Systems - Review of Systems Constitutional: See HPI, Weakness, Weight loss EENT: No symptoms reported Cardiovascular: See HPI, Chest pain, Syncope, Dizziness Respiratory: No symptoms reported Gastrointestinal: See HPI, Vomiting Genitourinary: No symptoms reported Female Genitourinary: No symptoms reported Musculoskeletal: No symptoms reported Skin: No symptoms reported Hematologic/Lymphatic: No symptoms reported Neurological/Psychological: No symptoms reported -: Yes All other systems reviewed and negative <SWEETIE LARA - Last Filed: 05/15/17 15:52> Physical Exam <SWEETIE LARA - Last Filed: 05/15/17 15:52> <YECENIA SABA - Last Filed: 05/15/17 18:13> - Vital signs Vitals: Temp Pulse Resp BP Pulse Ox 97.6 F 54 L 18 98/45 L 97 05/15/17 13:49 05/15/17 13:49 05/15/17 13:49 05/15/17 13:49 05/15/17 13:49 - Notes Notes: Physical Exam: General: Alert, appears slightly uncomfortable. HEENT: Normocephalic. Atraumatic. PERRL. Extraocular movements intact. Oropharynx clear. Dry mucous membranes. Neck: Supple. Non-tender. Respiratory: No respiratory distress. Clear and equal breath sounds bilaterally. Cardiovascular: Regular rate and rhythm. Abdominal: Normal Inspection. Non-tender. No distension. Normal Bowel Sounds. Back: Non-tender. No deformity or step off. Extremities: Moves all four extremities. Upper extremities: Normal inspection. Normal ROM. Lower extremities: Normal inspection. No edema. Normal ROM. Neurological: Normal cognition. AAOx4. Normal speech. Psychological: Normal affect. Normal Mood. Skin: Warm. Dry. Normal color. (SWEETIE LARA) Course - Laboratory Result Diagrams: 05/15/17 14:20 05/15/17 14:31 <SWEETIE LARA - Last Filed: 05/15/17 15:52> - Laboratory Result Diagrams: 05/15/17 14:20 05/15/17 14:31 - EKG Interpretation by Me EKG shows normal: Sinus rhythm, [place], Intervals, QRS Complexes, ST-T Waves Rate: Normal - 81 Rhythm: NSR <YECENIA SABA - Last Filed: 05/15/17 18:13> - Re-evaluation Re-evalutation: 05/15/17 18:05 At this time the patient feels much better. He does not have any chest pain. Her blood pressure is 153/71 with pulse of 84. EKG was completely normal, troponins were undetectable. Reviewing records from this facility shows the patient has lost an average of 10 pounds per month since the middle of January of this year. Discussing with her weathercaster, it seems the cna hha has her on insulin dosing that allows her sugars to run in the 300-400 range regularly. This would explain why she continues to eat her normal amount but still is losing weight. I explained to her weathercaster that if she is eating a normal amount, and losing weight, then it either has to be an absorption issue, or she is urinating out all the calories. They are advised to follow-up with primary care to discuss how tightly they want to manage her diabetes. (YECEINA SABA) - Vital Signs Vital signs: Temp Pulse Resp BP Pulse Ox 97.6 F 54 L 14 149/63 H 100 05/15/17 13:49 05/15/17 13:49 05/15/17 18:01 05/15/17 18:01 05/15/17 18:01 - Laboratory Laboratory results interpreted by me: 05/15/17 05/15/17 05/15/17 14:20 14:31 16:44 Hgb 10.7 L Hct 32.9 L RDW 18.0 H Plt Count 498 H Potassium 3.4 L Chloride 92 L Carbon Dioxide 34 H Glucose 182 H Magnesium 1.3 L Alkaline Phosphatase 130 H Creatine Kinase < 20 L Urine Glucose (UA) 50 H Urine Ketones TRACE H Discharge <SWEETIE LARA - Last Filed: 05/15/17 15:52> <YECENIA SABA - Last Filed: 05/15/17 18:13> - Discharge Clinical Impression: Poorly controlled diabetes mellitus, Weight loss of more than 10% body weight, Weight loss, unintentional, Light-headed feeling Chest pain Qualifiers: Chest pain type: unspecified Qualified Code(s): R07.9 - Chest pain, unspecified Hypotension Qualifiers: Hypotension type: unspecified hypotension type Qualified Code(s): I95.9 - Hypotension, unspecified Condition: Stable Disposition: HOME, SELF-CARE Additional Instructions: Chest Pain of Unclear Cause: The exact cause of your chest pain isn't clear. Fortunately, there is no evidence of a dangerous medical condition. Further testing may be required to find the source of the pain. Most often, we find that this pain is coming from the chest wall -- the muscles or rib joints in the chest. But chest pain can come from the lung and lung lining, the esophagus, the heart valves or heart lining, and even the stomach or gallbladder. Rest. Eat lightly until the pain is gone. We may prescribe medicine for pain and inflammation. You should call the physician immediately if the pain radiates to the shoulder, jaw or arms; if you start to run a fever or develop a cough; or if you develop shortness of breath, or other new or alarming symptoms. //////////////////////////////////////////////////////////////////////////////// //////////////////////////////////////////////////////////////////////////////// /////////////////// Your symptoms of feeling lightheaded were probably due to your low blood pressure today. There is no clear explanation for your chest pain. You have averaged a 10 pound per month weight loss since the middle of January of this year. This may be due to running excessively high sugars and urinating out much of your calorie intake. Be sure to drink plenty of fluids throughout the day in the evening. Follow-up with your doctor this week to discuss your weight loss, your persistently elevated blood sugars, and any other concerns. RETURN TO THE EMERGENCY ROOM IF ANY NEW OR WORSENING SYMPTOMS. Referrals: JUDE VALENZUELA FNP [Primary Care Provider] - Follow up in 3-5 days Yumiko Attestation: 05/15/17 16:10 I personally performed the services described in the documentation, reviewed and edited the documentation which was dictated to the scribe in my presence, and it accurately records my words and actions. (YECENIA SABA) Scribe Documentation - Scribe Written by Keithe:: Yumiko Chisholm, 05/15/2017 1551 acting as scribe for :: July <SWEETIE LARA - Last Filed: 05/15/17 15:52>
[2017-05-15] MEDS ORDERED: NORMAL SALINE 1000 ML 500 ML IV ONE (14:56)
[2017-05-15 15:06] LABS: ALANINE AMINOTRANSFERASE 18 U/L (9-52); ALBUMIN 3.8 g/dL (3.5-5.0); ALKALINE PHOSPHATASE 130 U/L (38-126); ANION GAP 12 (5-19); ASPARTATE AMINO TRANSFERASE 22 U/L (14-36); BILIRUBIN,DIRECT 0.4 mg/dL (0.0-0.4); BILIRUBIN,TOTAL 0.7 mg/dL (0.2-1.3); BLOOD UREA NITROGEN 9 mg/dL (7-20); CALCIUM 10.2 mg/dL (8.4-10.2); CARBON DIOXIDE 34 mmol/L (22-30); CHLORIDE 92 mmol/L (98-107); CREATININE RESULT 0.88 mg/dL (0.52-1.25); GLUCOSE 182 mg/dL (75-110); MAGNESIUM 1.3 mg/dL (1.6-2.3); POTASSIUM 3.4 mmol/L (3.6-5.0); SODIUM 137.8 mmol/L (137-145); TOTAL PROTEIN 7.9 g/dL (6.3-8.2)
[2017-05-15 15:11] LABS: CREATINE KINASE < 20 U/L (30-135)
[2017-05-15 15:18] LABS: CREATINE KINASE MB 0.23 ng/mL (<4.55); TROPONIN I 0.013 ng/mL
--- NOTE | 2017-05-15 15:19 | EKG REPORT ---
SEVERITY:- NORMAL ECG - SINUS RHYTHM : Confirmed by: Rigoberto Thomas MD 15-May-2017 15:19:01
--- NOTE | 2017-05-15 16:46 | RADIOLOGY REPORT (SQ) ---
EXAM DESCRIPTION: CHEST SINGLE VIEW COMPLETED DATE/TIME: 05/15/2017 3:46 pm REASON FOR STUDY: chest pain, low BP COMPARISON: 02/01/2017 EXAM PARAMETERS: NUMBER OF VIEWS: One view. TECHNIQUE: Single frontal radiographic view of the chest acquired. RADIATION DOSE: NA LIMITATIONS: None. FINDINGS: LUNGS AND PLEURA: No opacities, masses or pneumothorax. No pleural effusion. MEDIASTINUM AND HILAR STRUCTURES: No masses. Contour normal. HEART AND VASCULAR STRUCTURES: Heart normal in size. Normal vasculature. BONES: No acute findings. HARDWARE: None in the chest. OTHER: A skin fold crosses the right hemithorax vertically. IMPRESSION: NO ACUTE RADIOGRAPHIC FINDING IN THE CHEST. TECHNICAL DOCUMENTATION: JOB ID: [id number] [employer]- All Rights Reserved
[2017-05-15 17:12] LABS: APPEARANCE,URINE CLEAR; BILIRUBIN,URINE NEGATIVE (NEGATIVE); GLUCOSE, URINE 50 mg/dL (NEGATIVE); KETONES,URINE TRACE mg/dL (NEGATIVE); LEUKOCYTE ESTERASE,URINE NEGATIVE (NEGATIVE); NITRITE,URINE NEGATIVE (NEGATIVE); PROTEIN,URINE NEGATIVE (NEGATIVE); URINE SPECIFIC GRAVITY 1.004; UROBILINOGEN,URINE NEGATIVE mg/dL (<2.0)
[2017-05-15 18:03] VITALS: BP 149/63
== END 2017-05-15 18:54 | disposition home or self-care (01) ==
LOC: ER 13:48
DX: E11.9 Type 2 diabetes mellitus without complications (principal); R63.4 Abnormal weight loss; R07.9 Chest pain, unspecified; I95.9 Hypotension, unspecified; R55 Syncope and collapse; R53.1 Weakness; I48.91 Unspecified atrial fibrillation; Z87.891 Personal history of nicotine dependence; Z79.02 Long term (current) use of antithrombotics/antiplatelets; Z79.84 Long term (current) use of oral hypoglycemic drugs; Z90.49 Acquired absence of other specified parts of digestive tract; Z90.710 Acquired absence of both cervix and uterus
CPT/HCPCS: 93005; 99285; 51701; 36415; 87040; 82553; 82550; 83735; 85025; 80053; 81001; 84484; 71010; 93010; J7030

== ENCOUNTER 2017-07-08 01:33 | Emergency (ER) | payer MEDICARE, MEDICAID ==
[2017-07-08] MEDS ORDERED: NORMAL SALINE 1000 ML 1,000 ML IV ONE (01:48)
--- NOTE | 2017-07-08 01:50 | ER Document Report ---
ED Blood Sugar Problem - General Chief Complaint: High Blood Sugar Stated Complaint: HIGH BLOOD SUGAR Time Seen by Provider: 07/08/17 01:48 Notes: The patient is a 81-year-old female, past medical history IDDM, A. fib, hypertension, presents by EMS from the residential after her blood sugar was 562. She received some insulin and her blood sugar went up to 582. Patient just moved into this residential and says that they have not regulated her diet yet. She is on sliding scale Novolog and she received 11 units NovoLog at 2200 tonight. She feels thirsty, but denies chest pain, shortness of breath, nausea, vomiting, focal weakness, numbness or tingling. TRAVEL OUTSIDE OF THE [place] IN LAST 30 DAYS: No - Related Data Allergies/Adverse Reactions: meperidine [From Demerol] Allergy (Verified 01/31/17 09:17) metformin Allergy (Verified 05/15/17 13:54) morphine Allergy (Verified 01/31/17 09:17) Past Medical History - General Information source: Patient - Social History Smoking Status: Never Smoker Family History: Reviewed & Not Pertinent - Past Medical History Cardiac Medical History: Reports: Hx Atrial Fibrillation - eloquis was recently stopped secondary to anemia, Hx Congestive Heart Failure, Hx Hypercholesterolemia Endocrine Medical History: Reports: Hx Diabetes Mellitus Type 2 - metformin Renal/ Medical History: Denies: Hx Peritoneal Dialysis Musculoskeltal Medical History: Reports Hx Arthritis Past Surgical History: Reports: Hx Bowel Surgery, Hx Cholecystectomy, Hx Hysterectomy, Hx Orthopedic Surgery - knees bilat - Immunizations Hx Diphtheria, Pertussis, Tetanus Vaccination: Yes Review of Systems - Review of Systems Notes: REVIEW OF SYSTEMS: CONSTITUTIONAL: -fevers, -chills EENT: -eye pain, -difficulty swallowing, -nasal congestion CARDIOVASCULAR: -chest pain, -syncope. RESPIRATORY: -cough, -SOB GASTROINTESTINAL: -abdominal pain, -nausea, -vomiting, -diarrhea GENITOURINARY: -dysuria, -hematuria MUSCULOSKELETAL: -back pain, -neck pain SKIN: -rash or skin lesions. HEMATOLOGIC: -easy bruising or bleeding. LYMPHATIC: -swollen, enlarged glands. NEUROLOGICAL: -altered mental status or loss of consciousness, -headache, - neurologic symptoms PSYCHIATRIC: -anxiety, -depression. ALL OTHER SYSTEMS REVIEWED AND NEGATIVE. Physical Exam - Vital signs Vitals: Temp Pulse Resp BP Pulse Ox 97.9 F 80 16 145/71 H 96 07/08/17 01:54 07/08/17 01:54 07/08/17 01:54 07/08/17 01:54 07/08/17 01:54 - Notes Notes: PHYSICAL EXAMINATION: GENERAL: Well-appearing, well-nourished and in no acute distress. HEAD: Atraumatic, normocephalic. EYES: Pupils equal round and reactive to light, extraocular movements intact, sclera anicteric, conjunctiva are normal. ENT: nares patent, oropharynx clear without exudates. Dry mucous membranes. NECK: Normal range of motion, supple without lymphadenopathy LUNGS: Breath sounds clear to auscultation bilaterally and equal. No wheezes rales or rhonchi. HEART: Regular rate and rhythm without murmurs ABDOMEN: Soft, nontender, normoactive bowel sounds. No guarding, no rebound. No masses appreciated. EXTREMITIES: Normal range of motion, no pitting or edema. No cyanosis. NEUROLOGICAL: Cranial nerves grossly intact. Normal speech, normal gait. Normal sensory and motor exams. PSYCH: Normal mood, normal affect. SKIN: Warm, Dry, normal turgor, no rashes or lesions noted. Course - Re-evaluation Re-evalutation: Patient appears very well and has no complaints other than polydipsia. No anion gap and she does not appear to be in HHS or DKA at this time. After IV fluids and her sliding scale insulin, her blood sugar went down to low 300's. Will have her follow with her primary care physician for further adjustment of her diabetes medications. - Vital Signs Vital signs: Temp Pulse Resp BP Pulse Ox 97.9 F 80 16 145/71 H 96 07/08/17 01:54 07/08/17 01:54 07/08/17 01:54 07/08/17 01:54 07/08/17 01:54 - Laboratory Result Diagrams: 07/08/17 01:48 07/08/17 01:48 Laboratory results interpreted by me: 07/08/17 07/08/17 07/08/17 01:48 01:48 02:58 RBC 3.10 L Hgb 8.3 L Hct 25.8 L MCH 26.9 L RDW 16.2 H Sodium 133.1 L Glucose 442 H* POC Glucose 395 H Alkaline Phosphatase 145 H Total Protein 5.5 L Albumin 2.7 L 07/08/17 04:43 RBC Hgb Hct MCH RDW Sodium Glucose POC Glucose 316 H Alkaline Phosphatase Total Protein Albumin Discharge - Discharge Clinical Impression: Hyperglycemia Condition: Stable Disposition: HOME, SELF-CARE Additional Instructions: Speak to your primary care physician about adjustments of your insulin. Try to eat a low carbohydrate and sugar diet. HYPERGLYCEMIA (HIGH BLOOD SUGAR): You have an abnormally high blood sugar. Not all high blood sugar requires long-term treatment. High blood sugar can be due to medications, , or the stress of illness. (These cases are "borderline diabetes.") If the doctor feels your high blood sugar might resolve with time, you may not require treatment now. It's very important that you follow through, to see if the blood sugar returns to normal levels. Uncontrolled high blood sugar leads to early heart disease, strokes, nerve damage, eye damage, and kidney damage. Call the physician if there is faintness, excess sleepiness, or very rapid breathing. INSULIN: Insulin is a natural hormone that lowers blood sugar. Normal blood sugar prevents complications of diabetes. For most diabetics, insulin is the best way to treat the illness. Be sure you know how to measure the insulin correctly. Insulin is measured in "units." There are three types of insulin: N (NPH or long acting), R (regular or short acting), and L (Lente or very long acting). Be sure you are using the right amount of each type. Insulin must be injected into the fat. You can use the abdomen, upper arms , and thighs. Select a different injection site every time. Wipe the site with alcohol before injecting. When first starting insulin, some adjusting of the insulin dose is necessary. Keep a record of each insulin dose and time of injection, and of the blood sugar and the time you test it. Sometimes insulin can make the blood sugar too low. If you become dizzy, sweaty, shaky, or confused, you may be having a hypoglycemic episode. Immediately use juice or some other sweet food. Call the doctor if the symptoms don't go away. FOLLOW-UP CARE: If you have been referred to a physician for follow-up care, call the physician s office for an appointment as you were instructed or within the next two days. If you experience worsening or a significant change in your symptoms, notify the physician immediately or return to the Emergency Department at any time for re-evaluation. Referrals: COLIN GELLER MD [Primary Care Provider] - Follow up as needed
[2017-07-08 02:03] LABS: ABSOLUTE BASOPHILS # (AUTO) 0.1 10^3/uL (0.0-0.2); ABSOLUTE EOSINOPHILS # (AUTO) 0.1 10^3/uL (0.0-0.6); ABSOLUTE LYMPHOCYTES (AUTO) 2.4 10^3/uL (0.5-4.7); ABSOLUTE MONOCYTES (AUTO) 0.5 10^3/uL (0.1-1.4); ABSOLUTE NEUT (AUTO) 3.2 10^3/uL (1.7-8.2); BASOPHILS % (AUTO) 1.1 % (0-2); EOSINOPHILS % (AUTO) 1.9 % (0-6); HEMATOCRIT 25.8 % (36.0-47.0); HEMOGLOBIN 8.3 g/dL (12.0-15.5); LYMPHOCYTES % (AUTO) 38.2 % (13-45); MEAN CORPUSCULAR HEMOGLOBIN 26.9 pg (27.0-33.4); MEAN CORPUSCULAR HGB CONC 32.4 g/dL (32.0-36.0); MEAN CORPUSCULAR VOLUME 83 fl (80-97); MONOCYTES % (AUTO) 7.3 % (3-13); PLATELET COUNT 379 10^3/uL (150-450); RED CELL DISTRIBUTION WIDTH 16.2 % (11.5-14.0); SEGMENTED NEUTROPHILS % (AUTO) 51.5 % (42-78); TOTAL CELLS COUNTED % (AUTO) 100 %; WHITE BLOOD COUNT 6.3 10^3/uL (4.0-10.5)
[2017-07-08 02:18] LABS: ALANINE AMINOTRANSFERASE 22 U/L (9-52); ALBUMIN 2.7 g/dL (3.5-5.0); ALKALINE PHOSPHATASE 145 U/L (38-126); ANION GAP 6 (5-19); ASPARTATE AMINO TRANSFERASE 16 U/L (14-36); BILIRUBIN,DIRECT 0.2 mg/dL (0.0-0.4); BILIRUBIN,TOTAL 0.5 mg/dL (0.2-1.3); BLOOD UREA NITROGEN 12 mg/dL (7-20); CARBON DIOXIDE 29 mmol/L (22-30); CHLORIDE 98 mmol/L (98-107); POTASSIUM 3.8 mmol/L (3.6-5.0); SODIUM 133.1 mmol/L (137-145); TOTAL PROTEIN 5.5 g/dL (6.3-8.2)
[2017-07-08 02:27] LABS: GLUCOSE 442 mg/dL (75-110)
[2017-07-08] MEDS ORDERED: NORMAL SALINE 500 ML IV ONE (03:03)
[2017-07-08] MEDS ORDERED: INSULIN DETEMIR 100 UNIT/ML 3 ML PEN SUBCUT ONE ×2 (03:04→03:29)
[2017-07-08] MEDS ORDERED: INSULIN LISPRO 100 UNIT/ML 3 ML VIAL SUBCUT ONE (03:05)
[2017-07-08 05:20] VITALS: BP 150/66
== END 2017-07-08 05:35 | disposition home or self-care (01) ==
LOC: ER 01:33
DX: E11.65 Type 2 diabetes mellitus with hyperglycemia (principal); Z79.4 Long term (current) use of insulin; I48.91 Unspecified atrial fibrillation; I10 Essential (primary) hypertension
CPT/HCPCS: 99285; 96360; 36415; 82962; 85025; 80053; A9270; J7030; J7040; J1815

== ENCOUNTER 2017-10-16 05:24 | Emergency (ER) | payer MEDICARE, MEDICAID ==
--- NOTE | 2017-10-16 05:48 | ER Document Report ---
Doctor's Note Notes: 10/16/17 05:47 Patient presents with complaint low blood sugar. Blood sugar gets low. She did start to sweat feeling well. Parents arrived her blood sugars very low therefore they gave her glucose. Blood sugars start to trend upwards. Blood sugar is now just over 100. Patient says she thinks this is occurred because her doctor recently increase her insulin dosages. Patient denies any recent fevers or infections. She denies any pain. She says that she feels very cold. Her oral temp was 94. Will place patient on a bear hugger. I have ordered baseline labs. Informed nursing staff to give her something to eat. I have ordered Jhony Accu-Cheks. Dictation of this chart was performed using voice recognition software; therefore, there may be some unintended grammatical errors.
[2017-10-16 06:23] LABS: ABSOLUTE BASOPHILS # (AUTO) 0.1 10^3/uL (0.0-0.2); ABSOLUTE EOSINOPHILS # (AUTO) 0.1 10^3/uL (0.0-0.6); ABSOLUTE LYMPHOCYTES (AUTO) 1.7 10^3/uL (0.5-4.7); ABSOLUTE MONOCYTES (AUTO) 0.7 10^3/uL (0.1-1.4); BASOPHILS % (AUTO) 0.3 % (0-2); EOSINOPHILS % (AUTO) 0.7 % (0-6); HEMATOCRIT 33.3 % (36.0-47.0); HEMOGLOBIN 10.5 g/dL (12.0-15.5); LYMPHOCYTES % (AUTO) 11.4 % (13-45); MEAN CORPUSCULAR HGB CONC 31.5 g/dL (32.0-36.0); MEAN CORPUSCULAR VOLUME 80 fl (80-97); MONOCYTES % (AUTO) 4.7 % (3-13); PLATELET COUNT 520 10^3/uL (150-450); RED BLOOD COUNT 4.19 10^6/uL (3.72-5.28); RED CELL DISTRIBUTION WIDTH 16.1 % (11.5-14.0); SEGMENTED NEUTROPHILS % (AUTO) 82.9 % (42-78); TOTAL CELLS COUNTED % (AUTO) 100 %; WHITE BLOOD COUNT 14.6 10^3/uL (4.0-10.5)
--- NOTE | 2017-10-16 06:38 | ER Document Report ---
ED General - General Chief Complaint: Low Blood Sugar Stated Complaint: LOW BLOOD SUGAR Time Seen by Provider: 10/16/17 05:45 Notes: 81-year-old female was brought in for low blood sugar. The patient just had her insulin adjusted the last several days. They increased her Levemir from 20- 23 units twice daily. They also placed her on a set dose of NovoLog with meals from a sliding scale. The patient denies any complaints other than just feeling cold. The patient has been eating here. She denies chest pain denies shortness of breath. Denies any abdominal pain no nausea vomiting diarrhea. Patient attributes this to just changes in her insulin. She denies any hematuria or dysuria. Denies cough. Denies chest pain shortness of breath denies headache or blurred vision. TRAVEL OUTSIDE OF THE [place] IN LAST 30 DAYS: No - Related Data Allergies/Adverse Reactions: meperidine [From Demerol] Allergy (Verified 01/31/17 09:17) metformin Allergy (Verified 05/15/17 13:54) morphine Allergy (Verified 01/31/17 09:17) Past Medical History - Social History Smoking Status: Never Smoker Chew tobacco use (# tins/day): No Family History: Reviewed & Not Pertinent Patient has suicidal ideation: No Patient has homicidal ideation: No - Past Medical History Cardiac Medical History: Reports: Hx Atrial Fibrillation - eloquis was recently stopped secondary to anemia, Hx Congestive Heart Failure, Hx Hypercholesterolemia Endocrine Medical History: Reports: Hx Diabetes Mellitus Type 2 - metformin Renal/ Medical History: Denies: Hx Peritoneal Dialysis Musculoskeltal Medical History: Reports Hx Arthritis Past Surgical History: Reports: Hx Bowel Surgery, Hx Cholecystectomy, Hx Hysterectomy, Hx Orthopedic Surgery - knees bilat - Immunizations Hx Diphtheria, Pertussis, Tetanus Vaccination: Yes Review of Systems - Review of Systems Constitutional: denies: Chills, Fever Cardiovascular: denies: Chest pain, Dizziness Respiratory: denies: Cough, Short of breath Gastrointestinal: denies: Diarrhea, Nausea Musculoskeletal: denies: Back pain Skin: denies: Rash Neurological/Psychological: denies: Headaches -: Yes All other systems reviewed and negative Physical Exam - Vital signs Vitals: Resp Pulse Ox 15 95 10/16/17 05:37 10/16/17 05:37 - Notes Notes: GENERAL_APPEARANCE: well_nourished, alert, cooperative VITALS: reviewed, see vital signs table. HEAD: no_swelling\tenderness on the head. EYES: PERRL, EOMI, conjunctiva_clear. NOSE: no_nasal_discharge. MOUTH: (-)decreased moisture. THROAT: no_tonsilar_inflammation, no_airway_obstruction. no_lymphadenopathy NECK: supple, no_neck_tenderness, (-)thyromegaly. BACK: no_back_tenderness. CHEST_WALL: no_chest_tenderness. LUNGS: no_wheezing, no_rales, no_rhonchi, (-)accessory muscle use, good air exchange bilateral. HEART: normal_rate, normal_rhythm, normal_S1, normal_S2, (-)S3, (-)S4, no_ murmur, no_rub. ABDOMEN: normal_BS, soft, no_abd_tenderness, (-)guarding, (-)rebound, no_ organomegaly, no_abd_masses. EXTREMITIES: good pulses in all_extremities, no_swelling\tenderness in the extremities, no_edema. SKIN: warm, dry, good_color, no_rash. MENTAL_STATUS: speech_clear, oriented_X_3, normal_affect, responds_ appropriately to questions. NEURO: Neg Motor or Sensory Deficits on exam, CN 2-12 intact, DTR 2+ symmetric x 4, No cerbellar signs Course - Re-evaluation Re-evalutation: 10/16/17 06:37 Orders were placed by off going physician Evaluated the patient she is feeling better eating crackers with peanut butter when I come in the room. She denies any complaints of the being cold she had a low temperature initially and this may be due to just the fact that she had a low blood sugar and the associated symptoms with that. We are checking a urine chest x-ray and some blood work to see if there is anything suggestive of infection. White blood cell count did come back a little elevated this could be due to infection versus an acute phase reactant due to the stress of hypoglycemia. 10/16/17 09:03 Temperatures normalized. Urine is negative EKG did not show any acute abnormalities again white count was mildly elevated. This may be likely an acute phase reactant due to the hypoglycemic episode. Patient blood sugar is up and staying up. She is conversant and seems to be baseline. She will be discharged home. To be advised to be to start her normal insulin regiment --I would likely call her doctor today and drop back to her Levemir to 20 twice daily from the 23 - Vital Signs Vital signs: Temp Pulse Resp BP Pulse Ox 98.2 F 16 157/57 H 96 10/16/17 09:00 10/16/17 08:01 10/16/17 08:01 10/16/17 08:01 - Laboratory Result Diagrams: 10/16/17 06:10 10/16/17 06:10 Laboratory results interpreted by me: 10/16/17 10/16/17 10/16/17 05:29 06:10 06:10 WBC 14.6 H Hgb 10.5 L Hct 33.3 L MCH 25.0 L MCHC 31.5 L RDW 16.1 H Plt Count 520 H Seg Neutrophils % 82.9 H Lymphocytes % 11.4 L Absolute Neutrophils 12.0 H Creatinine 0.51 L Glucose 216 H POC Glucose 119 H Alkaline Phosphatase 169 H Urine Glucose (UA) Urine Ascorbic Acid 10/16/17 10/16/17 10/16/17 06:39 07:53 07:56 WBC Hgb Hct MCH MCHC RDW Plt Count Seg Neutrophils % Lymphocytes % Absolute Neutrophils Creatinine Glucose POC Glucose 207 H 386 H Alkaline Phosphatase Urine Glucose (UA) >=500 H Urine Ascorbic Acid 20 H - EKG Interpretation by Me EKG shows normal: Sinus rhythm Rate: Normal Rhythm: NSR Additional EKG results interpreted by me: 10/16/17 08:00 Normal sinus rhythm at [address] depression laterally this is unchanged compared to old EKG from May 15, 2017 Discharge - Discharge Clinical Impression: Hypoglycemia Hypothermia Qualifiers: Encounter type: initial encounter Qualified Code(s): T68.XXXA - Hypothermia, initial encounter Condition: Good Disposition: HOME, SELF-CARE Instructions: Hypoglycemia ([facility]) Additional Instructions: Change her Levemir back to 20 units twice a day --call your family doctor today and tell them you ended up in the ER with low blood sugar last night. They may want to adjust that further. Referrals: SOFIA BARNES MD [Primary Care Provider] - Follow up as needed
[2017-10-16 06:43] LABS: ALANINE AMINOTRANSFERASE 32 U/L (9-52); ALKALINE PHOSPHATASE 169 U/L (38-126); ANION GAP 13 (5-19); ASPARTATE AMINO TRANSFERASE 27 U/L (14-36); BILIRUBIN,DIRECT 0.3 mg/dL (0.0-0.4); BILIRUBIN,TOTAL 0.5 mg/dL (0.2-1.3); BLOOD UREA NITROGEN 16 mg/dL (7-20); CARBON DIOXIDE 30 mmol/L (22-30); CHLORIDE 99 mmol/L (98-107); GLUCOSE 216 mg/dL (75-110); POTASSIUM 3.9 mmol/L (3.6-5.0); SODIUM 141.9 mmol/L (137-145); TOTAL PROTEIN 7.9 g/dL (6.3-8.2)
--- NOTE | 2017-10-16 07:16 | RADIOLOGY REPORT (SQ) ---
EXAM DESCRIPTION: EXAM DESCRIPTION: CHEST SINGLE VIEW CLINICAL HISTORY: 81 years Female, Low BSG COMPARISON: 11..17. NUMBER OF VIEWS/TECHNIQUE: 1/AP FINDINGS: Adequate lung volume, clear parenchyma, mild interstitial markings, normal cardiac silhouette, atherosclerosis, and intact bony thorax. IMPRESSION: No acute cardiopulmonary findings.
[2017-10-16 08:15] LABS: APPEARANCE,URINE CLEAR; BILIRUBIN,URINE NEGATIVE (NEGATIVE); COLOR,URINE YELLOW; GLUCOSE, URINE >=500 mg/dL (NEGATIVE); KETONES,URINE NEGATIVE (NEGATIVE); LEUKOCYTE ESTERASE,URINE NEGATIVE (NEGATIVE); NITRITE,URINE NEGATIVE (NEGATIVE); PROTEIN,URINE NEGATIVE (NEGATIVE); URINE SPECIFIC GRAVITY 1.008; UROBILINOGEN,URINE NEGATIVE mg/dL (<2.0)
[2017-10-16 08:29] VITALS: BP 157/57
--- NOTE | 2017-10-16 13:12 | EKG REPORT ---
SEVERITY:- OTHERWISE NORMAL ECG - SINUS RHYTHM MINIMAL ST DEPRESSION, LATERAL LEADS : Confirmed by: Nilson Domínguez 16-Oct-2017 13:12:21
== END 2017-10-16 09:18 | disposition home or self-care (01) ==
LOC: ER 05:24
DX: T68.XXXA Hypothermia, initial encounter (principal); E11.649 Type 2 diabetes mellitus with hypoglycemia without coma; I48.91 Unspecified atrial fibrillation; I50.9 Heart failure, unspecified; X58.XXXA Exposure to other specified factors, initial encounter; Z79.4 Long term (current) use of insulin; Z90.49 Acquired absence of other specified parts of digestive tract; Z90.710 Acquired absence of both cervix and uterus; Z88.6 Allergy status to analgesic agent
CPT/HCPCS: 36415; 71045; 80053; 81001; 82962; 85025; 93005; 93010; 99284

== ENCOUNTER 2017-10-30 04:39 | Emergency (ER) | payer MEDICARE, MEDICAID ==
--- NOTE | 2017-10-30 05:06 | ER Document Report ---
ED Medical Screen (RME) - General TRAVEL OUTSIDE OF THE [place] IN LAST 30 DAYS: No <MELE CHACON - Last Filed: 10/30/17 05:04> <AUDIE KATZ - Last Filed: 10/30/17 05:10> - General Chief Complaint: Chest Pain Stated Complaint: CHEST PAIN Time Seen by Provider: 10/30/17 04:53 Notes: 81-year-old female, chief complaint of chest pain that started just prior to arrival, she states it felt like a pain that started in her abdomen and went up into her left chest and left shoulder, pain has almost completely subsided and she only feels pain now she takes a deep breath. She reports nausea and shortness of breath with the pain. Comes by EMS, given 324 mg of aspirin and 1 nitroglycerin. Past medical history of atrial fibrillation on Eliquis and aspirin, also has diabetes and hypertension, states she had a mini heart attack once in the past. (MELE CHACON) - Related Data Allergies/Adverse Reactions: meperidine [From Demerol] Allergy (Verified 01/31/17 09:17) metformin Allergy (Verified 05/15/17 13:54) morphine Allergy (Verified 01/31/17 09:17) Past Medical History - Past Medical History Cardiac Medical History: Reports: Hx Atrial Fibrillation - eloquis was recently stopped secondary to anemia, Hx Congestive Heart Failure, Hx Hypercholesterolemia Endocrine Medical History: Reports: Hx Diabetes Mellitus Type 2 - metformin Renal/ Medical History: Denies: Hx Peritoneal Dialysis Musculoskeltal Medical History: Reports Hx Arthritis Past Surgical History: Reports: Hx Bowel Surgery, Hx Cholecystectomy, Hx Hysterectomy, Hx Orthopedic Surgery - knees bilat - Immunizations Hx Diphtheria, Pertussis, Tetanus Vaccination: Yes History of Influenza Vaccine for 03/2017 - 08/2017 Season: No <MELE CHACON - Last Filed: 10/30/17 05:04> Physical Exam - General General appearance: Appears well In distress: None - Cardiovascular Rhythm: Regular. No: Irregularly irregular, Extrasystoles, Tachycardia Heart sounds: Normal auscultation, S1 appreciated, S2 appreciated - Abdominal Tenderness: Tender - Generalized tenderness worse in the epigastric area <MLEE CHACON - Last Filed: 10/30/17 05:04> Course <MELE CHACON - Last Filed: 10/30/17 05:04> - Laboratory Result Diagrams: 10/30/17 04:33 10/30/17 04:33 <AUDIE KATZ - Last Filed: 10/30/17 05:10> - Re-evaluation Re-evalutation: EKG showing sinus rhythm, questionable ST elevations in the inferior leads with no reciprocal changes, no T-wave inversions. Discussed with Dr. Katz. He will evaluate the patient at bedside. (MELE CHACON) 10/30/17 05:08 KALANI Johnson, saw the patient. I elected EKG. She does have almost diffuse concave up ST segment elevation. She has similar concave up ST segment elevation in her previous EKG from May 15, 2017 however on today's EKG it is a little bit more pronounced. She does not have any reciprocal ST segment depressions. There are not any T-wave inversions. She is in sinus rhythm with a rate of 87 bpm. On exam patient says her chest pain is relieved. She said the only time she has chest pain as if she takes a deep breath. She looks very comfortable on exam and is well-appearing. I do not think thrombolytics are appropriate at this time as she does not have reciprocal ST segment depressions and all her ST segment elevations are concave upward. At this time we will continue with baseline labs including troponin and will do a repeat EKG in about 15-20 minutes just to make sure that there is not any worsening of her findings. 10/30/17 05:10 (AUDIE KATZ)
[2017-10-30 05:11] LABS: ABSOLUTE EOSINOPHILS # (AUTO) 0.1 10^3/uL (0.0-0.6); ABSOLUTE LYMPHOCYTES (AUTO) 2.3 10^3/uL (0.5-4.7); ABSOLUTE MONOCYTES (AUTO) 0.8 10^3/uL (0.1-1.4); ABSOLUTE NEUT (AUTO) 7.4 10^3/uL (1.7-8.2); BASOPHILS % (AUTO) 0.4 % (0-2); EOSINOPHILS % (AUTO) 0.8 % (0-6); HEMATOCRIT 29.5 % (36.0-47.0); HEMOGLOBIN 9.6 g/dL (12.0-15.5); MEAN CORPUSCULAR HEMOGLOBIN 25.4 pg (27.0-33.4); MEAN CORPUSCULAR HGB CONC 32.4 g/dL (32.0-36.0); MEAN CORPUSCULAR VOLUME 78 fl (80-97); MONOCYTES % (AUTO) 7.3 % (3-13); PLATELET COUNT 406 10^3/uL (150-450); RED BLOOD COUNT 3.78 10^6/uL (3.72-5.28); RED CELL DISTRIBUTION WIDTH 16.6 % (11.5-14.0); SEGMENTED NEUTROPHILS % (AUTO) 69.5 % (42-78); TOTAL CELLS COUNTED % (AUTO) 100 %; WHITE BLOOD COUNT 10.6 10^3/uL (4.0-10.5)
[2017-10-30 05:32] LABS: ALANINE AMINOTRANSFERASE 21 U/L (9-52); ALBUMIN 3.6 g/dL (3.5-5.0); ALKALINE PHOSPHATASE 125 U/L (38-126); ANION GAP 9 (5-19); ASPARTATE AMINO TRANSFERASE 38 U/L (14-36); BILIRUBIN,DIRECT 0.3 mg/dL (0.0-0.4); BILIRUBIN,TOTAL 0.5 mg/dL (0.2-1.3); BLOOD UREA NITROGEN 15 mg/dL (7-20); CALCIUM 9.3 mg/dL (8.4-10.2); CARBON DIOXIDE 32 mmol/L (22-30); CHLORIDE 98 mmol/L (98-107); GLUCOSE 260 mg/dL (75-110); LIPASE 17.4 U/L (23-300); POTASSIUM 4.2 mmol/L (3.6-5.0); SODIUM 138.8 mmol/L (137-145); TOTAL PROTEIN 7.3 g/dL (6.3-8.2)
[2017-10-30 05:53] LABS: CREATINE KINASE < 20 U/L (30-135)
[2017-10-30 05:54] LABS: CREATINE KINASE MB < 0.22 ng/mL (<4.55); TROPONIN I < 0.012 ng/mL
[2017-10-30] MEDS ORDERED: FAMOTIDINE INJ/PF 20 MG/2 ML SDV IV ONE (07:19)
--- NOTE | 2017-10-30 08:37 | RADIOLOGY REPORT (SQ) ---
EXAM DESCRIPTION: CHEST SINGLE VIEW COMPLETED DATE/TIME: 10/30/2017 5:48 am REASON FOR STUDY: chest pain COMPARISON: AP chest 10/16/2017, 02/01/2017 EXAM PARAMETERS: NUMBER OF VIEWS: One view. TECHNIQUE: Single frontal radiographic view of the chest acquired. RADIATION DOSE: NA LIMITATIONS: None. FINDINGS: LUNGS AND PLEURA: Lungs are hyperlucent and hyperinflated from obstructive disease. Minimal left basilar bandlike scarring or atelectasis No acute infiltrates. No pleural effusion or pneumothorax. MEDIASTINUM AND HILAR STRUCTURES: No masses. Contour normal. HEART AND VASCULAR STRUCTURES: Heart normal in size. Normal vasculature. BONES: No acute findings. Osteopenic HARDWARE: None in the chest. OTHER: No other significant finding. IMPRESSION: Obstructive lung disease with minimal left basilar scarring TECHNICAL DOCUMENTATION: JOB ID: [id number] [employer]- All Rights Reserved Reading location - IP/workstation name: [email or web address]
--- NOTE | 2017-10-30 08:44 | EKG REPORT ---
SEVERITY:- BORDERLINE ECG - SINUS RHYTHM BORDERLINE ST ELEVATION, INFERIOR LEADS : Confirmed by: Nilson Domínguez 30-Oct-2017 08:43:07
--- NOTE | 2017-10-30 08:45 | EKG REPORT ---
SEVERITY:- BORDERLINE ECG - SINUS RHYTHM BORDERLINE ST ELEVATION, INFERIOR LEADS : Confirmed by: Nilson Domínguez 30-Oct-2017 08:44:17
[2017-10-30] MEDS ORDERED: LIDOCAINE 5% (700 MG) TRANSDERMAL ADH..PATCH TP ONE (09:24)
[2017-10-30 09:33] VITALS: BP 158/67
[2017-10-30] MEDS ORDERED: SOTALOL HCL 80 MG TABLET PO ONE ×2 (09:34)
[2017-10-30] MEDS ORDERED: METOPROLOL TARTRATE PF/INJ 5 MG/5 ML SDV IV ONE ×3 (09:35→11:12)
--- NOTE | 2017-10-30 09:59 | ER Document Report ---
ED General - General Chief Complaint: Chest Pain Stated Complaint: CHEST PAIN Time Seen by Provider: 10/30/17 04:53 TRAVEL OUTSIDE OF THE [place] IN LAST 30 DAYS: No - HPI Patient complains to provider of: Chest pain Notes: Patient coming in for evaluation of chest pain left lateral chest wall tender to palpation onset around midnight. Patient states no nausea no vomiting no fevers or chills. Patient denies any trauma resting comfortably upon my evaluation. Patient does have a cardiac history in the past currently seen in a normal sinus rhythm has a history of atrial fibrillation. Patient states she has not taken any of her medications shows morning. Patient upon my evaluation states she is chest pain-free states chest pain was more achy and burning. She also states some pain in the epigastric region. Denies any diarrhea. - Related Data Allergies/Adverse Reactions: meperidine [From Demerol] Allergy (Verified 01/31/17 09:17) metformin Allergy (Verified 05/15/17 13:54) morphine Allergy (Verified 01/31/17 09:17) Past Medical History - Social History Smoking Status: Unknown if Ever Smoked Family History: Reviewed & Not Pertinent Patient has suicidal ideation: No Patient has homicidal ideation: No - Past Medical History Cardiac Medical History: Reports: Hx Atrial Fibrillation - eloquis was recently stopped secondary to anemia, Hx Congestive Heart Failure, Hx Hypercholesterolemia Endocrine Medical History: Reports: Hx Diabetes Mellitus Type 2 - metformin Renal/ Medical History: Denies: Hx Peritoneal Dialysis Musculoskeltal Medical History: Reports Hx Arthritis Past Surgical History: Reports: Hx Bowel Surgery, Hx Cholecystectomy, Hx Hysterectomy, Hx Orthopedic Surgery - knees bilat - Immunizations Hx Diphtheria, Pertussis, Tetanus Vaccination: Yes Review of Systems - Review of Systems Constitutional: No symptoms reported EENT: No symptoms reported Cardiovascular: Chest pain Respiratory: No symptoms reported Gastrointestinal: No symptoms reported Genitourinary: No symptoms reported Female Genitourinary: No symptoms reported Musculoskeletal: No symptoms reported Skin: No symptoms reported Hematologic/Lymphatic: No symptoms reported Neurological/Psychological: No symptoms reported -: Yes All other systems reviewed and negative Physical Exam - Vital signs Vitals: Pulse Ox 97 10/30/17 04:48 Interpretation: Normal - General General appearance: Appears well, Alert - HEENT Head: Normocephalic, Atraumatic Eyes: Normal Pupils: PERRL - Respiratory Respiratory status: No respiratory distress Chest status: Nontender Breath sounds: Normal Chest palpation: Normal - Cardiovascular Rhythm: Regular Heart sounds: Normal auscultation Murmur: No - Abdominal Inspection: Normal Distension: No distension Bowel sounds: Normal Tenderness: Nontender Organomegaly: No organomegaly - Back Back: Normal, Nontender - Extremities General upper extremity: Normal inspection, Nontender, Normal color, Normal ROM , Normal temperature General lower extremity: Normal inspection, Nontender, Normal color, Normal ROM , Normal temperature, Normal weight bearing. No: Marisol's sign - Neurological Neuro grossly intact: Yes Cognition: Normal Orientation: AAOx4 Nelsy Coma Scale Eye Opening: Spontaneous Nelsy Coma Scale Verbal: Oriented Platinum Coma Scale Motor: Obeys Commands Platinum Coma Scale Total: 15 Speech: Normal Motor strength normal: LUE, RUE, LLE, RLE Sensory: Normal - Psychological Associated symptoms: Normal affect, Normal mood - Skin Skin Temperature: Warm Skin Moisture: Dry Skin Color: Normal Course - Re-evaluation Re-evalutation: 10/30/17 14:49 The patient has atypical chest pain as the patient's chest pain is not suggestive of pulmonary embolus, cardiac ischemia, aortic dissection, or other serious etiology. Given the extremely low risk of these diagnoses further testing and evaluation for these possibilities does not appear to be indicated at this time. The patient has been instructed to return if the symptoms worsen or change in any way. EKG did have some slight ST segment elevation will be more pronounced than previous EKGs however EKGs 2 did not show any further changes along with 2 troponins are negative. Upon explained to the patient that we will discharge her home patient actually went to A. fib little bit RVR with no chest pain. Patient heart rate A. fib with a heart rate of 140. More likely this is due to on her medications patient has not had her sotalol today. Patient was given her sotalol and then 3 doses of metoprolol which did decrease her heart rate and patient did become rate controlled. Family at bedside states this has happened multiple times they are comfortable taking patient home patient is to do continue her home medications - Vital Signs Vital signs: Temp Pulse Resp BP Pulse Ox 98 F 20 158/67 H 97 10/30/17 12:17 10/30/17 09:01 10/30/17 09:00 10/30/17 09:01 - Laboratory Result Diagrams: 10/30/17 04:33 10/30/17 04:33 Laboratory results interpreted by me: 10/30/17 10/30/17 10/30/17 04:33 04:33 11:23 WBC 10.6 H Hgb 9.6 L Hct 29.5 L MCV 78 L MCH 25.4 L RDW 16.6 H Carbon Dioxide 32 H Glucose 260 H POC Glucose 267 H AST 38 H Creatine Kinase < 20 L Lipase 17.4 L Discharge - Discharge Clinical Impression: Chest wall pain, Cough, Paroxysmal A-fib Condition: Good Disposition: HOME, SELF-CARE Instructions: Chest Wall Pain ([facility]), Chest Pain of Unclear Cause ([facility]) Additional Instructions: Your laboratory studies today and chest x-ray did not reveal any signs of cardiac ischemia heart damage heart attack no signs of infection such as pneumonia. I do believe some your symptoms are due to your recent instillation of a AC unit. Dizziness will make the area flat drier C mid and can cause some irritation to lungs cough which in turn will cause inflammation of the chest and constant chest wall pain. Recommend taking Tylenol for pain control. Continue to drink plenty water to stay hydrated. Return to ER symptoms worsen. Follow-up with your primary care physician. Referrals: COLIN GELLER MD [Primary Care Provider] - Follow up as needed
== END 2017-10-30 12:18 | disposition home or self-care (01) ==
LOC: ER 04:39
DX: R07.89 Other chest pain (principal); I48.0 Paroxysmal atrial fibrillation; R05 Cough; R10.13 Epigastric pain; E11.9 Type 2 diabetes mellitus without complications; Z88.5 Allergy status to narcotic agent; Z88.8 Allergy status to other drugs, medicaments and biological substances; Z79.899 Other long term (current) drug therapy; Z79.891 Long term (current) use of opiate analgesic
CPT/HCPCS: 93005; 96376; 99285; 96374; 96375; 36415; 82553; 82962; 82550; 83690; 85025; 80053; 84484; 71045; 93010; A9270; J3490; S0028

== ENCOUNTER 2018-10-07 16:05 | Emergency (ER) | payer MEDICARE, MEDICAID ==
[2018-10-07] MEDS ORDERED: ACETAMINOPHEN 325 MG TABLET PO ONE (16:53)
--- NOTE | 2018-10-07 16:56 | ER Document Report ---
HPI - HPI Patient complains to provider of: Fall Time Seen by Provider: 10/07/18 16:47 Onset: Just prior to arrival Onset/Duration: Sudden Quality of pain: Achy Pain Level: 2 Context: Patient was going down steps in a relative fell behind her causing her to fall and then landing on top of her. Patient with a left leg, and foot pain. Patient denies any head injury or loss of consciousness. Patient denies any chest pain, nausea or vomiting. Associated Symptoms: Other - Left leg, left foot, left lower leg pain. denies: Headache, Vomiting Exacerbated by: Standing, Movement, Walking Relieved by: Remaining still Similar symptoms previously: No Recently seen / treated by doctor: No - ROS ROS below otherwise negative: Yes Systems Reviewed and Negative: Yes All other systems reviewed and negative - NEURO Neurology: DENIES: Headache, Weakness - CARDIOVASCULAR Cardiovascular: DENIES: Chest pain - RESPIRATORY Respiratory: DENIES: Trouble Breathing - GASTROINTESTINAL Gastrointestinal: DENIES: Abdominal Pain, Nausea, Patient vomiting - MUSCULOSKELETAL Musculoskeletal: REPORTS: Extremity pain. DENIES: Back Pain - DERM Skin Color: Normal Skin Problems: None Past Medical History - General Information source: Patient, Relative - Social History Smoking Status: Never Smoker Chew tobacco use (# tins/day): No Frequency of alcohol use: None Drug Abuse: None Lives with: Family Family History: Reviewed & Not Pertinent Patient has suicidal ideation: No Patient has homicidal ideation: No - Past Medical History Cardiac Medical History: Reports: Hx Atrial Fibrillation - eloquis was recently stopped secondary to anemia, Hx Congestive Heart Failure, Hx Hypercholesterolemia Endocrine Medical History: Reports: Hx Diabetes Mellitus Type 2 - metformin Renal/ Medical History: Denies: Hx Peritoneal Dialysis Musculoskeletal Medical History: Reports Hx Arthritis Past Surgical History: Reports: Hx Bowel Surgery, Hx Cholecystectomy, Hx Hysterectomy, Hx Orthopedic Surgery - knees bilat - Immunizations Hx Diphtheria, Pertussis, Tetanus Vaccination: Yes Vertical Provider Document - CONSTITUTIONAL Agree With Documented VS: Yes Exam Limitations: No Limitations General Appearance: WD/WN, No Apparent Distress - INFECTION CONTROL TRAVEL OUTSIDE OF THE [place] IN LAST 30 DAYS: No - HEENT HEENT: Atraumatic, Normocephalic - NECK Neck: Normal Inspection, Supple - RESPIRATORY Respiratory: Breath Sounds Normal, No Respiratory Distress - CARDIOVASCULAR Cardiovascular: Regular Rate, Regular Rhythm Pulses: Normal: Radial, Dorsalis pedis - BACK Back: Normal Inspection - MUSCULOSKELETAL/EXTREMETIES Musculoskeletal/Extremeties: MAEW, Tender - Patient with tenderness to middle and distal third of left femur. Muscle compartment soft. Left knee joint tenderness to medial compartment with 1+ edema, no laxity with varus or valgus maneuvers. Patellar tendon intact. Left midfoot tenderness with palpation, no swelling, no ecchymosis or deformity.. negative: Eccymosis - NEURO Level of Consciousness: Awake, Alert, Appropriate Motor/Sensory: No Motor Deficit - DERM Integumentary: Warm, Dry, No Rash Course - Re-evaluation Re-evalutation: 10/07/18 17:55 Patient does have subtle lucency noted on cuneiform of foot x-ray this does coincide with patient's point tenderness. We will treat as fracture at this time. Patient advised of radiology findings and need for orthopedic follow-up. Patient does have wheelchair at home and family to assist with mobility. - Vital Signs Vital signs: Temp Pulse Resp BP Pulse Ox 97.7 F 66 18 145/54 H 95 10/07/18 16:22 10/07/18 16:22 10/07/18 16:22 10/07/18 16:22 10/07/18 16:22 - Diagnostic Test Radiology reviewed: Image reviewed, Reports reviewed Procedures - Immobilization Left Foot Pre-Proc Neuro Vasc Exam: Normal Immobilizer type: Posterior ankle Performed by: PCT Post-Proc Neuro Vasc Exam: Normal Alignment checked and good: Yes Discharge - Discharge Clinical Impression: Muscle strain, Left leg pain Fall Qualifiers: Encounter type: initial encounter Qualified Code(s): W19.XXXA - Unspecified fall, initial encounter Foot fracture, left Qualifiers: Encounter type: initial encounter Fracture type: closed Qualified Code(s): S92.902A - Unspecified fracture of left foot, initial encounter for closed fracture Condition: Stable Disposition: HOME, SELF-CARE Instructions: Acetaminophen, Foot Fracture ([facility]), Ice & Elevation ([facility]), Muscle Strain ([facility]), Splint Precautions ([facility]) Additional Instructions: Return immediately for any new or worsening symptoms Followup with your primary care provider, call tomorrow to make a followup appointment Follow-up with orthopedics for further evaluation, your primary doctor can make this referral for you Use your wheelchair and walker that you have at home to assist with ambulation. Prescriptions: Hydrocodone/Acetaminophen [[place] 5-325 mg Tablet] 1 tab PO Q8 PRN #12 tablet PRN Reason: Referrals: COLIN GELLER MD [Primary Care Provider] - Follow up as needed [facility] [Provider Group] - Follow up tomorrow
--- NOTE | 2018-10-07 17:37 | RADIOLOGY REPORT (SQ) ---
EXAM DESCRIPTION: FOOT LEFT COMPLETE COMPLETED DATE/TIME: 10/07/2018 5:28 pm REASON FOR STUDY: fall down steps/someone fell on pt, LLE pain COMPARISON: None. NUMBER OF VIEWS: Three views. TECHNIQUE: AP, lateral and oblique radiographic images acquired of the left foot. LIMITATIONS: None. FINDINGS: MINERALIZATION: Osteopenia. Bones: There is a subtle irregular shaped lucency in the medial cuneiform extending from the 1st tars ometatarsal joint posteriorly. No other bony abnormalities appreciated. JOINTS: Scattered degenerative changes SOFT TISSUES: Vascular calcifications are present. OTHER: No other significant finding. IMPRESSION: Subtle lucency in the mid medial cuneiform at the level of the 1st tarsal metatarsal sury nt. This may represent a nutrient vessel or overlying structures, however a nondisplaced fracture is not entirely excluded. Recommend correlation with patient's site of pain. TECHNICAL DOCUMENTATION: JOB ID: [id number] [employer]- All Rights Reserved Reading location - IP/workstation name: [email or web address]
--- NOTE | 2018-10-07 17:38 | RADIOLOGY REPORT (SQ) ---
EXAM DESCRIPTION: TIBIA FIBULA LEFT COMPLETED DATE/TIME: 10/07/2018 5:28 pm REASON FOR STUDY: fall down steps/someone fell on pt, LLE pain COMPARISON: None. NUMBER OF VIEWS: Two views. TECHNIQUE: Two radiographic images acquired of the left tibia and fibula to include the knee and ank le in at least one projection. LIMITATIONS: None. FINDINGS: MINERALIZATION: Osteopenia. BONES: No acute fracture or dislocation. No worrisome bone lesions. SOFT TISSUES: Vascular calcifications noted throughout. OTHER: No other significant finding. IMPRESSION: No evidence of acute injury TECHNICAL DOCUMENTATION: JOB ID: [id number] [employer]- All Rights Reserved Reading location - IP/workstation name: [email or web address]
--- NOTE | 2018-10-07 17:39 | RADIOLOGY REPORT (SQ) ---
EXAM DESCRIPTION: FEMUR LEFT COMPLETED DATE/TIME: 10/07/2018 5:28 pm REASON FOR STUDY: fall down steps/someone fell on pt, LLE pain COMPARISON: None. NUMBER OF VIEWS: Two views. TECHNIQUE: Two radiographic images acquired of the left femur to include hip and knee in at least on e projection. LIMITATIONS: None. FINDINGS: MINERALIZATION: Osteopenia. BONES: No acute fracture. No worrisome bone lesions. SOFT TISSUES: Vascular calcifications noted. OTHER: No other significant finding. IMPRESSION: No evidence of acute injury TECHNICAL DOCUMENTATION: JOB ID: [id number] [employer]- All Rights Reserved Reading location - IP/workstation name: [email or web address]
[2018-10-07 18:44] VITALS: BP 197/78
== END 2018-10-07 18:46 | disposition home or self-care (01) ==
LOC: ER 16:05
DX: S92.902A Unspecified fracture of left foot, initial encounter for closed fracture (principal); M79.605 Pain in left leg; W03.XXXA Other fall on same level due to collision with another person, initial encounter; I48.91 Unspecified atrial fibrillation; I50.9 Heart failure, unspecified; I11.0 Hypertensive heart disease with heart failure; E11.9 Type 2 diabetes mellitus without complications; Z90.49 Acquired absence of other specified parts of digestive tract; Z90.710 Acquired absence of both cervix and uterus; Z79.84 Long term (current) use of oral hypoglycemic drugs
CPT/HCPCS: 99283; 82962; 73552; 73630; 73590; 29515; A9270

== ENCOUNTER 2020-02-18 17:38 | Emergency (ER) | payer MEDICARE, MEDICAID ==
[2020-02-18 18:02] VITALS: BP 153/62
--- NOTE | 2020-02-18 18:54 | ER Document Report ---
HPI - HPI Patient complains to provider of: Foreign body left ear Time Seen by Provider: 02/18/20 18:39 Context: 84-year-old female presents to the emergency room with a piece of her hearing aid stuck in her left ear that happened earlier today. Patient states EMS tried to suck it out without relief. She is now complaining of pain. Denies any other trauma or injury to her ear. Associated Symptoms: None Exacerbated by: Denies Relieved by: Denies Similar symptoms previously: No Recently seen / treated by doctor: No - ROS Systems Reviewed and Negative: Yes All other systems reviewed and negative - CONSTITUTIONAL Constitutional: DENIES: Fever - EENT EENT: REPORTS: Ear Pain Notes: Foreign body left ear canal - NEURO Neurology: DENIES: Headache - DERM Skin Color: Normal Skin Problems: None Past Medical History - General Information source: Patient - Social History Smoking Status: Never Smoker Frequency of alcohol use: None Drug Abuse: None Family History: Reviewed & Not Pertinent - Past Medical History Cardiac Medical History: Reports: Hx Atrial Fibrillation - eloquis was recently stopped secondary to anemia, Hx Congestive Heart Failure, Hx Hypercholesterolemia Endocrine Medical History: Reports: Hx Diabetes Mellitus Type 2 - metformin Renal/ Medical History: Denies: Hx Peritoneal Dialysis Musculoskeletal Medical History: Reports Hx Arthritis Past Surgical History: Reports: Hx Bowel Surgery, Hx Cholecystectomy, Hx Hysterectomy, Hx Orthopedic Surgery - knees bilat - Immunizations Hx Diphtheria, Pertussis, Tetanus Vaccination: Yes Vertical Provider Document - CONSTITUTIONAL Agree With Documented VS: Yes Exam Limitations: No Limitations General Appearance: Mild Distress - INFECTION CONTROL TRAVEL OUTSIDE OF THE [place] IN LAST 30 DAYS: No - HEENT HEENT: Atraumatic, Normocephalic. negative: Pharyngeal Exudate, Pharyngeal Erythema, Tympanic Membrane Bulging Notes: Left outer ear canal with foreign body noted. Right outer ear canal without erythema or swelling. Right tympanic membrane intact. - NECK Neck: Normal Inspection, Supple - RESPIRATORY Respiratory: Breath Sounds Normal, No Respiratory Distress, Chest Non-Tender - CARDIOVASCULAR Cardiovascular: Regular Rate, Regular Rhythm, No Murmur - NEURO Level of Consciousness: Awake, Alert, Appropriate Motor/Sensory: No Motor Deficit, No Sensory Deficit - DERM Integumentary: Warm, Dry, No Rash Course - Re-evaluation Re-evalutation: 02/18/20 18:51 Able to remove foreign body from left outer ear canal with alligator forceps without difficulty. Patient tolerated well. Left outer ear canal with erythema and swelling noted post procedure. Tympanic membranes intact. Use eardrops as prescribed. Recheck with primary care physician in 2 days. Patient was given strict return to the emergency room guidelines. Return for any new or worsening symptoms. All questions were answered. Patient verbalized understanding and agrees with plan of care. - Vital Signs Vital signs: Temp Pulse Resp BP Pulse Ox 98.2 F 68 16 153/62 H 96 02/18/20 18:01 02/18/20 18:01 02/18/20 18:01 02/18/20 18:02/18/20 18:01 Procedures - Additional Procedures foreign body Time performed: 18:51 Additional Procedures: Other - Foreign body removal left ear canal Notes: 02/18/20 18:51 Able to remove hearing aid piece from left ear canal with alligator forceps. Patient tolerated procedure well. Outer ear canal with erythema and swelling noted after removal of foreign body. Discharge - Discharge Clinical Impression: Foreign body in left ear, initial encounter Left otitis externa Qualifiers: Otitis externa type: noninfectious Noninfectious otitis externa type: other type Chronicity: acute Qualified Code(s): H60.592 - Other noninfective acute otitis externa, left ear Condition: Stable Disposition: HOME, SELF-CARE Instructions: Otitis Externa ([facility]), Use of Ear Drops ([facility]), Foreign Object in the Ear ([facility]) Additional Instructions: Use eardrops as prescribed. Recheck with primary care physician in 2 days. Return to the emergency room for any new or worsening symptoms. Prescriptions: Neomy Sulf/Polymyx B Sulf/Hc [Cortisporin Otic Susp] 5 drop LFT_EAR TID #1 bottle Referrals: COLIN GELLER MD [Primary Care Provider] - Follow up tomorrow (call For recheck in 2 to 3 days.)
== END 2020-02-18 19:00 | disposition home or self-care (01) ==
LOC: ER 17:38
DX: T16.2XXA Foreign body in left ear, initial encounter (principal); H60.592 Other noninfective acute otitis externa, left ear; X58.XXXA Exposure to other specified factors, initial encounter; I48.91 Unspecified atrial fibrillation; I50.9 Heart failure, unspecified; E78.00 Pure hypercholesterolemia, unspecified; E11.9 Type 2 diabetes mellitus without complications; Z79.84 Long term (current) use of oral hypoglycemic drugs; Z90.49 Acquired absence of other specified parts of digestive tract; Z90.710 Acquired absence of both cervix and uterus
CPT/HCPCS: 99283